=== PATIENT | female | born 1980 | race African-American/Black ===

== ENCOUNTER 2018-11-05 22:00 | Inpatient (IN) | payer MEDICAID ==
[~2018-11-05] VITALS: Ht 172.7 cm; Wt 84.0 kg
[~2018-11-05 22:00] MED LIST: CARBOPROST 250 MCG INJ ONE; PRENAT PO
[2018-11-05 23:36] VITALS: BMI 30.5
[2018-11-05] MEDS ORDERED: LACTATED RINGER'S 1,000 ML IV PRN (23:38)
[2018-11-06] VITALS (7 sets, daily range): BP systolic 101–123; BP diastolic 65–82; PULSE 76–104; RESP 13–19; Ht 172.7 cm; Wt 84.0 kg
[2018-11-06] MEDS ORDERED: MINERAL OIL LIGHT 10 ML VIAL TOP PRN
[2018-11-06] MEDS ORDERED: OXYTOCIN 30 UNITS/LR 500 ML IV PRN
[2018-11-06] MEDS ORDERED: BUTORPHANOL 2 MG INJ IV PRN
[2018-11-06] MEDS ORDERED: METHYLERGONOVINE 0.2 MG INJ IM PRN
[2018-11-06] MEDS ORDERED: LIDOCAINE 1% (MPF) 30 ML INJ INJ PRN
[2018-11-06] MEDS ORDERED: CARBOPROST 250 MCG INJ IM PRN
[2018-11-06] MEDS: LACTATED RINGER'S 1,000 ML IV SCH ×4 (00:19→15:21)
[2018-11-06] MEDS ORDERED: OXYTOCIN 30 UNITS/LR 500 ML IV SCH ×3 (01:00)
--- NOTE | 2018-11-06 11:36 | PREAC ---
Date/Time of Note Date/Time of Note DATE: 11/06/18 TIME: 11:35 Anesthesia Eval and Record Evaluation Time Pre-Procedure Interview DATE: 11/06/18 TIME: 11:35 Age 38 Sex female NPO: 2 hrs Preoperative diagnosis labor pain Planned procedure epidural Past Medical History Past Medical History: None Surgery & Anesthesia Issues No known issue Meds Anticoagulation: No Beta Ramya within 24 hr: No Reason Beta Ramya not given: Pt. not on B-Ramya Reported Medications Multivit/Min/Fol Ac/Iron/Pren* ( S*) 1 Tab Tab, 1 TAB PO DAILY, TAB 02/18/16 Current Medications Lactated Ringer's 1,000 ml @ 125 mls/hr Q8H IV Last administered on 11/06/18at 07:24; Admin Dose 125 MLS/HR; Start 11/05/18 at 23:38 Butorphanol Tartrate (Stadol) 2 mg Q2H PRN IV .PAIN SCALE 6-10; Start 11/06/18 at 00:00 Lidocaine (Xylocaine 1% (Mpf)) 30 ml ONCE PRN INJ .EPISIOTOMY; Start 11/06/18 at 00:00 Oxytocin/Lactated Ringer's 500 ml @ 500 mls/hr ONCE POST IV ; Start 11/06/18 at 00:00 Oxytocin/Lactated Ringer's 500 ml @ 125 mls/hr POST IV ; Start 11/06/18 at 00:00 Lactated Ringer's 1,000 ml @ 2,000 mls/hr Q30M PRN IV .ANESTHESIA; Start 11/05/18 at 23:38 Oxytocin/Lactated Ringer's 500 ml @ 0 mls/hr ONCE PRN IV .VAGINAL BLEEDING; Sta rt 11/06/18 at 00:00 Methylergonovine Maleate (Methergine) 0.2 mg ONCE PRN IM .VAGINAL BLEEDING; Sta rt 11/06/18 at 00:00 Carboprost Tromethamine (Hemabate) 250 mcg ONCE PRN IM .VAGINAL BLEEDING; Start 11/06/18 at 00:00 Misoprostol (Cytotec) 1,000 mcg ONCE PRN WI .VAGINAL BLEEDING; Start 11/06/18 at 00:00 Mineral Oil (Muri-Lube) 20 ml ONCE PRN TOP FOR DELIVERY; Start 11/06/18 at 00:00; Stop 11/07/18 at 00:00 Oxytocin/Lactated Ringer's 500 ml @ 0 mls/hr FOR INDUCTION IV Last administered on 11/06/18at 01:36; Admin Dose 1 MLS/HR; Start 11/06/18 at 01:00 Meds reviewed: Yes Allergies Coded Allergies: No Known Allergy (Unverified , 11/05/18) Allergies Reviewed: Yes Labs/Studies Labs Reviewed: Reviewed by anesthesiologist Result Diagram: 11/05/18 2315 Laboratory Tests 11/05/18 23:15 Blood Bank Test 11/05/18 23:15 Antibody Screen NEGATIVE Blood Type B POSITIVE Rh Immune Globulin Candidate NO test: N/A Pre-procedure Exam Last vitals Vital Signs Date Temp Pulse Resp B/P (MAP) Pulse Ox O2 O2 Flow FiO2 Time Delivery Rate 11/06/18 99.0 76 17 123/82 Room Air 01:42 (96) Airway: Adequate mouth opening, Adequate thyromental dist Mallampati: Mallampati IV Teeth: Normal Lung: Normal Heart: Normal ASA Physical Status ASA physical status: 2 Emergency: None Pre-operative Attestations Prior to commencing anesthesia and surgery, the patient was re-evaluated, there was verification of: *The patient's identity *The results of appropriate recent lab work and preoperative vital signs *The above evaluation not changing prior to induction *Anesthetic plan, risk benefits, alternative and complications discussed with patient/family; questions answered; patient/family understands, accepts and wishes to proceed. MARYELLEN FROST DO November 06, 2018 11:36
[2018-11-06] MEDS ORDERED: FENTAnyl 2MCG/ML-ROPIV 0.2% 100 ML ONE (11:48)
[2018-11-06] MEDS ORDERED: FENTAnyl 50 MCG/ML VIAL ONE (11:48)
[2018-11-06] MEDS: MISOPROSTOL 200 MCG TAB PR PRN ×2 (13:03→13:43)
[2018-11-06] MEDS ORDERED: ONDANSETRON 4 MG INJ IV STA (14:09)
[2018-11-06] MEDS ORDERED: ONDANSETRON 4 MG INJ ONE (14:12)
[2018-11-06] MEDS ORDERED: FAMOTIDINE 20 MG INJ IV ONE (14:30)
[2018-11-06] MEDS ORDERED: METOCLOPRAMIDE 10 MG INJ ONE (14:51)
[2018-11-06] MEDS ORDERED: FENTAnyl 50 MCG/ML VIAL IV ONE (15:00)
[2018-11-06] MEDS ORDERED: METOCLOPRAMIDE 10 MG INJ IV ONE (15:00)
[2018-11-06] MEDS ORDERED: LIDOCAINE 1% (MDV) 20 ML INJ ONE (15:38)
[2018-11-06] MEDS ORDERED: SUCCINYLCHOLINE CHLORIDE 100 MG/5 ML SYG IV ONE (15:38)
[2018-11-06] MEDS ORDERED: ROCURONIUM 50 MG INJ ONE (15:38)
[2018-11-06] MEDS ORDERED: ETOMIDATE 20 MG INJ ONE (15:38)
[2018-11-06] MEDS ORDERED: MIDAZOLAM 1 MG/ML 2 ML INJ ONE ×2 (15:38)
[2018-11-06] MEDS ORDERED: PHENYLephrine (100 MCG/ML) 10ML SYG ONE (16:25)
[2018-11-06] MEDS ORDERED: CA CHLORIDE 10% 10 ML SYRINGE ONE (16:26)
[2018-11-06] MEDS ORDERED: THROMBIN 5000 UNIT VIAL ONE (17:18)
[2018-11-06] MEDS ORDERED: DEXAMETHASONE 4 MG/ML 1 ML INJ ONE (17:20)
[2018-11-06] MEDS ORDERED: HYDROmorphONE 2 MG/ML SYG ONE (17:39)
[2018-11-06] MEDS ORDERED: ROPIVACAINE 0.5 % 30 ML VIAL ONE (17:44)
[2018-11-06] MEDS ORDERED: SUGAMMADEX SODIUM 200 MG/2 ML VIAL IV ONE (18:10)
--- NOTE | 2018-11-06 18:45 | PAC ---
Date/Time of Note Date/Time of Note DATE: 11/06/18 TIME: 18:43 Post-Anesthesia Notes Post-Anesthesia Note Last documented vital signs Vital Signs Date Temp Pulse Resp B/P (MAP) Pulse Ox O2 O2 Flow FiO2 Time Delivery Rate 11/06/18 98.2 103 19 113/62 98 Room Air 11/06/18 Activity: WNL Respiratory function: WNL Cardiovascular function: WNL Mental status: Baseline Pain reasonably controlled: Yes Hydration appropriate: Yes Nausea/Vomiting absent: Yes MARYELLEN FROST DO November 06, 2018 18:45
--- NOTE | 2018-11-06 18:47 | PREAC ---
Date/Time of Note Date/Time of Note DATE: 11/06/18 TIME: 18:46 Anesthesia Eval and Record Evaluation Time Pre-Procedure Interview DATE: 11/06/18 TIME: 18:46 Age 38 Sex female NPO: 8 hrs Preoperative diagnosis emergency hysterectomy for bleeding Planned procedure emergency hysterectomy for bleeding Past Medical History Past Medical History: None Surgery & Anesthesia Issues No known issue Meds Anticoagulation: No Beta Ramya within 24 hr: No Reason Beta Ramya not given: Pt. not on B-Ramya Reported Medications Multivit/Min/Fol Ac/Iron/Pren* ( S*) 1 Tab Tab, 1 TAB PO DAILY, TAB 02/18/16 Current Medications Lactated Ringer's 1,000 ml @ 125 mls/hr Q8H IV Last administered on 11/06/18at 15:21; Admin Dose 125 MLS/HR; Start 11/05/18 at 23:38 Butorphanol Tartrate (Stadol) 2 mg Q2H PRN IV .PAIN SCALE 6-10; Start 11/06/18 at 00:00 Lidocaine (Xylocaine 1% (Mpf)) 30 ml ONCE PRN INJ .EPISIOTOMY; Start 11/06/18 at 00:00 Oxytocin/Lactated Ringer's 500 ml @ 500 mls/hr ONCE POST IV Last administered on 11/06/18at 14:37; Admin Dose 500 MLS/HR; Start 11/06/18 at 00:00 Oxytocin/Lactated Ringer's 500 ml @ 125 mls/hr POST IV Last administered on 11/06/18at 15:04; Admin Dose 125 MLS/HR; Start 11/06/18 at 00:00 Lactated Ringer's 1,000 ml @ 2,000 mls/hr Q30M PRN IV .ANESTHESIA; Start 11/05/18 at 23:38 Oxytocin/Lactated Ringer's 500 ml @ 0 mls/hr ONCE PRN IV .VAGINAL BLEEDING; Start 11/06/18 at 00:00 Methylergonovine Maleate (Methergine) 0.2 mg ONCE PRN IM .VAGINAL BLEEDING; Start 11/06/18 at 00:00 Carboprost Tromethamine (Hemabate) 250 mcg ONCE PRN IM .VAGINAL BLEEDING Last administered on 11/06/18at 13:39; Admin Dose 250 MCG; Start 11/06/18 at 00:00 Misoprostol (Cytotec) 1,000 mcg ONCE PRN SC .VAGINAL BLEEDING Last administered on 11/06/18at 13:43; Admin Dose 400 MCG; Start 11/06/18 at 00:00 Mineral Oil (Muri-Lube) 20 ml ONCE PRN TOP FOR DELIVERY; Start 11/06/18 at 00:00; Stop 11/07/18 at 00:00 Oxytocin/Lactated Ringer's 500 ml @ 0 mls/hr FOR INDUCTION IV Last administered on 11/06/18at 01:36; Admin Dose 1 MLS/HR; Start 11/06/18 at 01:00 Meds reviewed: Yes Allergies Coded Allergies: No Known Allergy (Unverified , 11/05/18) Allergies Reviewed: Yes Labs/Studies Labs Reviewed: Reviewed by anesthesiologist Result Diagram: 11/06/18 1725 11/06/18 1725 Laboratory Tests 11/06/18 17:25 Blood Bank Test 11/05/18 23:15 Antibody Screen NEGATIVE Blood Product Summary Counts Blood Type B POSITIVE Crossmatch Red Blood Cells Rh Immune Globulin Candidate NO test: N/A Pre-procedure Exam Last vitals Vital Signs Date Temp Pulse Resp B/P (MAP) Pulse Ox O2 O2 Flow FiO2 Time Delivery Rate 11/06/18 99.0 76 17 123/82 Room Air 01:42 (96) Airway: Adequate mouth opening, Adequate thyromental dist Mallampati: Mallampati IV Teeth: Normal Lung: Normal Heart: Normal ASA Physical Status ASA physical status: 2 Emergency: E Pre-operative Attestations Prior to commencing anesthesia and surgery, the patient was re-evaluated, there was verification of: *The patient's identity *The results of appropriate recent lab work and preoperative vital signs *The above evaluation not changing prior to induction *Anesthetic plan, risk benefits, alternative and complications discussed with patient/family; questions answered; patient/family understands, accepts and wishes to proceed. MARYELLEN FROST DO November 06, 2018 18:47
[2018-11-06] MEDS ORDERED: MEPERIDINE 25 MG INJ IV PRN (19:00)
[2018-11-06] MEDS ORDERED: METOCLOPRAMIDE 10 MG INJ IV PRN (19:00)
[2018-11-06] MEDS ORDERED: ONDANSETRON 4 MG INJ IV PRN (19:00)
[2018-11-06] MEDS ORDERED: HYDROmorphONE 1 MG/5 ML IV SYRINGE IV PRN ×3 (19:00)
[2018-11-06] MEDS ORDERED: HYDROCODONE/APAP (5/325) TAB PO PRN ×2 (21:00)
--- NOTE | 2018-11-06 21:00 | HP ---
Date/Time of Note Date/Time of Note DATE: 11/06/18 TIME: 20:56 OB - History Hx of Present Free Text/Dictation Late entry note. Patient seen at 7 AM on 11/06/2018 38 years old with single intrauterine at 39 weeks and 2 days admitted for induction of labor for abdominal circumference more than 90% per perinatologist (Dr. Conklin) 's recommendation. She states good movement. She denies nausea, vomiting, shortness of breath, chest pain, headache, visual changes, vaginal bleeding or LOF. Chief Complaint: Admission for induction of labor Estimated Due Date: November 10, 2018 : 5 Para: 4 Spontaneous : 0 Therapeutic : 0 Care: Good Care (In [place]) Ultrasounds: Normal mid trimester US Obstetrical Complications: None Medical Complications: None Past Family/Social History * Past Medical, Surgical, Family and Obstetric Histories reviewed from chart. Blood Type: B+ Rubella: immune RPR/VDRL: Negative GBS Status: Negative HBsAG: Negative OB Admission Exam Vital Signs Vital Signs Vital Signs Date Temp Pulse Resp B/P (MAP) Pulse Ox O2 O2 Flow FiO2 Time Delivery Rate 11/06/18 98.2 100 19 117/65 100 Room Air 18:56 (82) Physical Exam HEENT: WNL Heart: Rhythm Normal Lungs: Clear Abdomen: WNL Extremities: Normal Reflexes: Normal Cervical Dilatation: other (2.5 cm) Effacement: 50% Station: -2 Membranes: Intact Heart Rate: 140's Accelerations: Accelerations Present Decelerations: No Decelerations Varibility: Moderate Contractions on Admission: < 5 Minutes Apart Intensity: Mild Last 72 hours Lab Results CBC & BMP 11/05/18 23:15 OB Assessment/Plan Other plan: 38 years old with single intrauterine at 39 weeks and 2 days in early labor. -FHR: No sign of metabolic acidosis- Category I -Continuous EFM, toco -CBC, blood type and screen -Analgesia options with R/B/A discussed in detail with patient -Epidural per patient request -Please see the orders -B+/Rubella: Immune -GBS: Negative Admission, procedures, expectations, risks and possible complications have been discussed in detail with the patient. Risk of vaginal delivery including but not limited to bleeding, infection, cervical laceration, placental retention, injury to fetus, blood transfusion, blood transfusion related infection, risk of anesthesia, adhesion, cervical laceration, episiotomy/laceration, removal of uterus for severe bleeding, possible delivery with risk of bleeding, infection, injury to other organs (bowel, bladder, ureter, vessels, nerves), injury to fetus, blood transfusion, blood transfusion related infection, risk of anesthesia, scar and hernia formation, needs for future , removal of uterus or any other indicated surgery discussed with the patient. She expressed understanding and repeats the risks. All of her questions were answered. She signed the informed consent. PHYSICIAN'S VERIFICATION OF INFORMED CONSENT The patient and her aunt counseled regarding the procedure, its indications, risks, potential complications and alternatives and any questions were answered. Consent was obtained. PLANNED PROCEDURE/TREATMENT: Vaginal delivery, episiotomy, repair of laceration possible delivery PHYSICIAN'S VERIFICATION OF INFORMED CONSENT FOR BLOOD TRANSFUSION: There is a reasonable possibility that blood transfusion will be necessary as a result of the patient's procedure. I have discussed the following with the patient/patient's legal district representative: An explanation of the benefits and risks of the transfusion of blood or blood products and the possible alternatives. All questions have been answered to the patient's satisfaction. INFORMED CONSENT:The patient has been informed of: The nature of the proposed care, treatment, services, medications, interventions or procedures. Potential benefits, risks or side effects, including potential problems related to recuperation. The likelihood of achieving care treatment and service goals. Reasonable alternatives to the proposed care, treatment and service. The relevant risks, benefits and side effects related to alternatives, including the possible results of not receiving care, treatment and services. When indicated, any limitations on the confidentiality of information learned from or about the patient. If appropriate, the risks, benefits and alternatives of the drugs to be used for sedation/analgesia including moderate sedation. If appropriate, patient has been provided information on the risks, benefits and alternatives to the transfusion of blood and/or blood products. If appropriate, patient has been provided information regarding the [employer] [place] Blood Act. ASHLEE JAIMES November 06, 2018 21:00
--- NOTE | 2018-11-06 21:17 | QN ---
Documentation Comment Late entry note. Patient seen at 11:15 this morning Patient seen and examined. She states good movement. She denies nausea, vomiting, shortness of breath, chest pain, headache, visual changes, vaginal bleeding or LOF. -FHR: No sign of metabolic acidosis- Category I -Continuous EFM, toco -She is currently on Pitocin (6 IU/min). She has contraction every 2-4 minutes -Analgesia options with R/B/A discussed in detail with patient. She is i nterested to receiving epidural. Anesthesia was called -SVE: /-2/cephalic/AROM performed/clear -Continue current management ASHLEE JAIMES November 06, 2018 21:17
[2018-11-07] VITALS (24 sets, daily range): BP systolic 108–159; BP diastolic 58–95; PULSE 64–101; RESP 11–21
[2018-11-07] MEDS ORDERED: morphine 2 MG INJ IV ONE (00:22)
[2018-11-07] MEDS: LACTATED RINGER'S 1,000 ML IV SCH ×2 (00:44→15:53)
[2018-11-07] MEDS ORDERED: HYDROmorphONE 0.2 MG/ML PCA IV SCH (01:30)
[2018-11-07] MEDS ORDERED: morphine 4 MG/ML VIAL IV PRN (01:30)
[2018-11-07] MEDS ORDERED: ONDANSETRON 4 MG INJ IV PRN (02:00)
[2018-11-07] MEDS ORDERED: NALOXONE (0.4 MG/ML) INJ IV PRN (02:00)
[2018-11-07] MEDS ORDERED: ACETAMINOPHEN 500 MG TAB PO PRN (02:00)
[2018-11-07] MEDS: HYDROmorphONE 0.2 MG/ML PCA IV SCH ×2 (02:59→13:06)
--- NOTE | 2018-11-07 04:19 | LDN ---
Date/Time of Note Date/Time of Note DATE: 11/07/18 TIME: 04:12 Delivery Summary Late entry note. Patient delivered at 12: 47 on 11/06/2018 38 years old with single intrauterine at 39 weeks and 2 days delivered a viable female over first-degree laceration. Nose and mouth suctioned. Rest of body delivered. Baby given to the nurse. Placenta delivered intact and spontaneously with three-vessel cord. Laceration repaired with 2-0 chromic. Patient tolerated procedure well. Time of delivery: 12:47 Weight 3680 g - 8 pound 2 ounces Height 19.5 inches 8 at 1 minutes and 9 at 5 minutes EBL 400 mL, Cytotec 400 mcg p.o. and 600 mcg per rectum given. Weeks of Gestation 39 weeks and 2 days Placenta Delivered: Spontaneously Meconium: none Episiotomy: No Estimated blood loss: 400 Sponge & Needle done & correct: Yes All needle counts correct: Yes Any foreign bodies felt in the: No Infant Delivery Information Sex Infant Sex: female Apgars 1 Minute: 8 5 Minute: 9 10 Minute: 10 Suctioning Nose & mouth suctioned at carroll: Yes Umbilical Cord Umbilical cord with: 3 Vessels Cord Blood was obtained: Yes Mother & Baby Disposition Disposition Mom transferred to: ICU Baby to NICU: No ASHLEE JAIMES November 07, 2018 04:19
--- NOTE | 2018-11-07 04:42 | QN ---
Documentation Comment Late entry note. Patient seen on 11/06/2018 Patient's nurse called to evaluate patient due to heavy vaginal bleeding approximately 1 hour after vaginal delivery. Immediately vaginal exam done, there was heavy bleeding with clot passing. Patient already had Lowery catheter. Pitocin, Cytotec and Hemabate given. Second IV line taken. Charge nurse, (Ying), Debra Gonzalez, extra nurse came to the room. Examination of vagina with no evidence of vaginal bleeding or bleeding from first-degree repaired laceration. Cervix checked with ring forceps circumferentially. There was no cervical laceration or bleeding from cervix. As the patient continued to have heavy bleeding. Called Dr. Lyle (Dairy Processing Equipment Operator) and Dr. Resendiz (anesthesiologist), both came in the room immediately. Third IV line taken by anesthesiologist. Exploration of uterine cavity revealed no succenturiate placental lobe or any membrane. Then Backri balloon inserted and filled with 500 mL normal saline. Possible hysterectomy with risks, benefits as a lifesaving procedure discussed the in detail with patient and her aunt. Both expressed understanding. 1 unit of packed RBC started, 2nd units of packed RBC and fresh frozen plasma ordered. After close monitoring, due to significant vaginal bleeding with clot passing and failed medical treatment with using Backri balloon, again hysterectomy as a lifesaving procedure discussed with patient, she agreed with procedure. Patient transferred to the operating room. EBL: 3300 ml ASHLEE JAIMES November 07, 2018 04:42
--- NOTE | 2018-11-07 05:19 | OPPN ---
Date/Time of Note Date/Time of Note DATE: 11/07/18 TIME: 05:16 Operative Report Preoperative Diagnosis 38 years old -0-0-5 with severe hemorrhage unresponsive to medical treatment. Postoperative Diagnosis 38 years old -0-0-5 with severe hemorrhage unresponsive to medical treatment Operation/Procedure Performed 1. Partial hysterectomy 2. Bilateral salpingectomy Surgeon see signature line assistant distribution manager Dr Lyle Anesthesia: general Estimated blood loss: 200 - 250 ml's Transfusion Required none Specimen 1. Uterus 2. Right and left fallopian tubes Grafts/Implants none Complications none HADADIAN,SEDI November 07, 2018 05:19
--- NOTE | 2018-11-07 06:21 | CONS ---
Assessment/Plan Assessment/Plan Assessment/Plan (Daily) 38-year-old female who came in for induction of labor (39 weeks and 2 days), status post vaginal delivery complicated by significant hemorrhage and DIC, status post partial hysterectomy and bilateral salpingectomy PLAN -Continue ICU monitoring -Patient is status post multiple PRBCs, platelets, FFP/cryoprecipitate transfusions -Follow-up hemoglobin, platelet count and DIC panel (except hemoglobin, rest have been normalizing) -Dr. Snowden, pharmacy services director was consulted -No anticoagulation unless hematology approves Consultation Date/Type/Reason Admit Date/Time November 05, 2018 at 22:49 Date/Time of Note DATE: 11/07/18 TIME: 06:05 Hx of Present Illness Patient is a 38-year-old female who was initially admitted for induction of labor. She was 39 weeks and 2 days when she arrived. Patient has a vaginal delivery and about an hour after she had a significant vaginal bleeding. According to the ICU nurse, about 3.5 L of blood was lost. Patient received 5 units of PRBCs. Lab also shows a progressively worsening thrombocytopenia and also her fibrinogen has been trending down. She received FFP's/cryoprecipitate. Patient was initially seen last night. Her vitals have been stable and patient looks comfortable. Her PT/INR and fibrinogen has now normalized. Platelet counts is now WNL. Hemoglobin however just came back at 6, which is the lowest. Patient was admitted to ICU last night and has not had any vaginal bleeding. Past Medical History Medical History: no pertinent history Home Meds Reported Medications Multivit/Min/Fol Ac/Iron/Pren* ( S*) 1 Tab Tab, 1 TAB PO DAILY, TAB /08/03 Medications Current Medications Lactated Ringer's 1,000 ml @ 125 mls/hr Q8H IV Last administered on 11/07/18at 00:44; Admin Dose 125 MLS/HR; Start 11/05/18 at 23:38 Butorphanol Tartrate (Stadol) 2 mg Q2H PRN IV .PAIN SCALE 6-10; Start 11/06/18 at 00:00 Lidocaine (Xylocaine 1% (Mpf)) 30 ml ONCE PRN INJ .EPISIOTOMY; Start 11/06/18 at 00:00 Oxytocin/Lactated Ringer's 500 ml @ 500 mls/hr ONCE POST IV Last administered on 11/06/18 14:37; Admin Dose 500 MLS/HR; Start 11/06/18 at 00:00 Oxytocin/Lactated Ringer's 500 ml @ 125 mls/hr POST IV Last administered on 11/06/18at 15:04; Admin Dose 125 MLS/HR; Start 11/06/18 at 00:00 Lactated Ringer's 1,000 ml @ 2,000 mls/hr Q30M PRN IV .ANESTHESIA; Start 11/05/18 at 23:38 Oxytocin/Lactated Ringer's 500 ml @ 0 mls/hr ONCE PRN IV .VAGINAL BLEEDING; Start 11/06/18 at 00:00 Methylergonovine Maleate (Methergine) 0.2 mg ONCE PRN IM .VAGINAL BLEEDING; Start 11/06/18 at 00:00 Carboprost Tromethamine (Hemabate) 250 mcg ONCE PRN IM .VAGINAL BLEEDING Last administered on 11/06/18 13:39; Admin Dose 250 MCG; Start 11/06/18 at 00:00 Misoprostol (Cytotec) 1,000 mcg ONCE PRN NM .VAGINAL BLEEDING Last administered on 11/06/18 13:43; Admin Dose 400 MCG; Start 11/06/18 at 00:00 Oxytocin/Lactated Ringer's 500 ml @ 0 mls/hr FOR INDUCTION IV Last administered on 11/06/18at 01:36; Admin Dose 1 MLS/HR; Start 11/06/18 at 01:00 Acetaminophen/ Hydrocodone Bitart ([place] (5/325)) 1 tab Q4H PRN PO MODERATE PAIN LEVEL 4-6; Start 11/06/18 at 21:00 Acetaminophen/ Hydrocodone Bitart ([place] (5/325)) 2 tab Q4H PRN PO MODERATE PAIN LEVEL 4-6; Start 11/06/18 at 21:00 Morphine Sulfate (morphine) 3 mg Q4H PRN IV SEVERE PAIN LEVEL 7-10; Start 11/07/18 at 01:30 Naloxone HCl (Narcan) 0.2 mg PRN PRN IV RR < 8; Start 11/07/18 at 02:00 Hydromorphone HCl (Dilaudid FRAMING MECHANIC) Q4PCA IV Last administered on 11/07/18at 02:59; Admin Dose 6 MG; Start 11/07/18 at 02:00 Acetaminophen (Tylenol Tab) 500 mg Q4H PRN PO PAIN LEVEL 1-5; Start 11/07/18 at 02:00 Ondansetron HCl (Zofran Inj) 4 mg Q6H PRN IV NAUSEA AND/OR VOMITING; Start 11/07/18 at 02:00 Allergies: Coded Allergies: No Known Allergy (Unverified , 11/05/18) Past Surgical History Past Surgical Hx: other (Patient just had partial hysterectomy and bilateral salpingectomy) Family History Significant Family History: no pertinent family hx Social History Alcohol Use: none Smoking Status: Unknown if ever smoked Drug Use: none Exam/Review of Systems Exam Vitals Vital Signs Date Temp Pulse Resp B/P (MAP) Pulse Ox O2 O2 Flow FiO2 Time Delivery Rate 11/07/18 95 19 132/84 100 Room Air 05:00 (100) 11/07/18 98.6 04:00 Intake and Output 11/06/18 11/06/18 11/07/18 1515:00 23:00 07:00 IntakeIntake Total 2500 ml 3072.5 ml 1128.5 ml OutputOutput Total 800 ml 4220 ml 580 ml BalanceBalance 1700 ml -1147.5 ml 548.5 ml Constitutional: other (No acute distress. She looked comfortable) Results Result Diagram: 11/07/18 0500 11/07/18 0500 Results 24hrs Laboratory Tests Test 11/06/18 07:04 11/06/18 13:55 11/06/18 16:00 11/06/18 17:25 Lab Scanned REFERENCE LAB Report White Blood 17.5 #H 14.5 H 18.6 #H Count Red Blood Count 4.20 2.56 #L 2.96 L Hemoglobin 11.9 L 7.1 #L 8.6 #L Hematocrit 35.4 L 21.2 #L 25.3 L Mean Corpuscular 84.3 82.8 85.5 Volume Mean Corpuscular 28.3 L 27.7 L 29.1 Hemoglobin Mean Corpuscular 33.6 33.5 34.0 Hemoglobin Bridgette nt Red Cell 15.8 H 14.9 H 14.6 H Distribution Width Platelet Count 153 107 #L 85 #L Mean Platelet 10.5 H 10.8 H 10.2 Volume Immature 0.600 H 1.000 H 0.800 H Granulocytes % Neutrophils % 86.5 H 90.3 H Lymphocytes % 9.4 L 3.1 L Monocytes % 2.5 5.5 Eosinophils % 0.8 0.1 Basophils % 0.2 0.2 Nucleated Red 0.0 0.0 0.0 Blood Cells % Immature 0.100 H 0.150 H 0.150 H Granulocytes # Neutrophils # 15.1 H 16.8 H Lymphocytes # 1.7 0.6 L Monocytes # 0.4 1.0 H Eosinophils # 0.1 0.0 Basophils # 0.0 0.0 Nucleated Red 0.0 0.0 Blood Cells # Prothrombin Time 19.4 #H 19.6 H 18.9 H Prothrombin Time 1.5 1.5 1.5 Ratio INR 1.63 1.65 1.57 International Normalized Ratio Activated 56.8 H 45.3 H 35.2 H Partial Thrombop last Time Fibrinogen 60.0 L < 60.0 L 40.0 L Sodium Level 137 136 Potassium Level 4.3 4.1 Chloride Level 107 113 H Carbon Dioxide 23 21 Level Anion Gap 7 2 L Blood Urea 7 9 Nitrogen Creatinine 0.67 0.49 Est Glomerular > 60 > 60 Filtrat Rate mL/min Glucose Level 93 139 # Uric Acid 5.6 Calcium Level 9.4 8.5 Total Bilirubin 1.8 H 1.5 H Direct Bilirubin 0.00 0.00 Indirect 1.8 H 1.5 H Bilirubin Aspartate Amino 32 28 Transf (AST/SGOT ) Alanine < 6 L 23 Aminotransferase (ALT/SGPT) Alkaline 184 H 58 # Phosphatase Total Protein 6.8 3.5 #L Albumin 3.6 1.6 #L Globulin 3.20 1.90 Albumin/Globulin 1.12 0.84 Ratio Segmented 91 H Neutrophils % (Manual) Lymphocytes % 7 L (Manual) Monocytes % 2 (Manual) Lymphocytes 1.0 (Manual) Monocytes # 0.2 L (Manual) Giant Platelets 2 H Anisocytosis 2+ Microcytosis 2+ Test 11/06/18 23:31 11/07/18 02:00 11/07/18 05:00 11/07/18 05:24 White Blood 13.4 #H 10.9 H Count Red Blood Count 2.66 L 2.06 #L Hemoglobin 7.7 L 6.0 #*L Hematocrit 22.3 L 17.3 #L Mean Corpuscular 83.8 84.0 Volume Mean Corpuscular 28.9 L 29.1 Hemoglobin Mean Corpuscular 34.5 34.7 Hemoglobin Bridgette nt Red Cell 14.6 H 14.4 Distribution Width Platelet Count 128 #L 108 L Mean Platelet 10.5 H 10.6 H Volume Neutrophils % 92.1 H Lymphocytes % 4.3 L Monocytes % 3.1 Eosinophils % 0.0 Basophils % 0.1 Nucleated Red 0.0 0.0 Blood Cells % Neutrophils # 12.3 H Lymphocytes # 0.6 L Monocytes # 0.4 Eosinophils # 0.0 Basophils # 0.0 Nucleated Red 0.0 Blood Cells # Prothrombin Time 14.6 # 14.2 Prothrombin Time 1.1 1.1 Ratio INR 1.13 1.09 International Normalized Ratio Activated 27.5 28.3 Partial Thrombop last Time Fibrinogen 179.0 #L 250.0 # Sodium Level 136 137 Potassium Level 4.2 3.8 Chloride Level 110 109 Carbon Dioxide 24 27 Level Anion Gap 2 L 1 L Blood Urea 8 7 Nitrogen Creatinine 0.54 0.57 Est Glomerular > 60 > 60 Filtrat Rate mL/min Glucose Level 123 107 Calcium Level 8.2 L 8.1 L Total Bilirubin 1.0 0.9 Direct Bilirubin 0.00 0.00 Indirect 1.0 0.9 Bilirubin Aspartate Amino 32 30 Transf (AST/SGOT ) Alanine 28 27 Aminotransferase (ALT/SGPT) Alkaline 63 58 Phosphatase Total Protein 4.3 L 4.3 L Albumin 2.1 L 2.1 L Globulin 2.20 2.20 Albumin/Globulin 0.95 0.95 Ratio Urine Color YELLOW Urine Clarity CLEAR Urine pH 5.0 Urine Specific 1.011 [place] Urine Ketones NEGATIVE Urine Nitrite NEGATIVE Urine Bilirubin NEGATIVE Urine NEGATIVE Urobilinogen Urine Leukocyte NEGATIVE Esterase Urine Hemoglobin NEGATIVE Urine Glucose NEGATIVE Urine Total NEGATIVE Protein Immature 0.400 Granulocytes % Immature 0.040 H Granulocytes # Thrombin Time 17.0 Lab Scanned BLOOD TRANSFUSI Report ON Medications Medication Current Medications Lactated Ringer's 1,000 ml @ 125 mls/hr Q8H IV Last administered on 11/07/18at 00:44; Admin Dose 125 MLS/HR; Start 11/05/18 at 23:38 Butorphanol Tartrate (Stadol) 2 mg Q2H PRN IV .PAIN SCALE 6-10; Start 11/06/18 at 00:00 Lidocaine (Xylocaine 1% (Mpf)) 30 ml ONCE PRN INJ .EPISIOTOMY; Start 11/06/18 at 00:00 Oxytocin/Lactated Ringer's 500 ml @ 500 mls/hr ONCE POST IV Last administered on 11/06/18at 14:37; Admin Dose 500 MLS/HR; Start 11/06/18 at 00:00 Oxytocin/Lactated Ringer's 500 ml @ 125 mls/hr POST IV Last administered on 11/06/18at 15:04; Admin Dose 125 MLS/HR; Start 11/06/18 at 00:00 Lactated Ringer's 1,000 ml @ 2,000 mls/hr Q30M PRN IV .ANESTHESIA; Start 11/05/18 at 23:38 Oxytocin/Lactated Ringer's 500 ml @ 0 mls/hr ONCE PRN IV .VAGINAL BLEEDING; Start 11/06/18 at 00:00 Methylergonovine Maleate (Methergine) 0.2 mg ONCE PRN IM .VAGINAL BLEEDING; Start 11/06/18 at 00:00 Carboprost Tromethamine (Hemabate) 250 mcg ONCE PRN IM .VAGINAL BLEEDING Last administered on 11/06/18at 13:39; Admin Dose 250 MCG; Start 11/06/18 at 00:00 Misoprostol (Cytotec) 1,000 mcg ONCE PRN NM .VAGINAL BLEEDING Last administered on 11/06/18at 13:43; Admin Dose 400 MCG; Start 11/06/18 at 00:00 Oxytocin/Lactated Ringer's 500 ml @ 0 mls/hr FOR INDUCTION IV Last administered on 11/06/18at 01:36; Admin Dose 1 MLS/HR; Start 11/06/18 at 01:00 Acetaminophen/ Hydrocodone Bitart ([place] (5/325)) 1 tab Q4H PRN PO MODERATE PAIN LEVEL 4-6; Start 11/06/18 at 21:00 Acetaminophen/ Hydrocodone Bitart ([place] (5/325)) 2 tab Q4H PRN PO MODERATE PAIN LEVEL 4-6; Start 11/06/18 at 21:00 Morphine Sulfate (morphine) 3 mg Q4H PRN IV SEVERE PAIN LEVEL 7-10; Start 11/07/18 at 01:30 Naloxone HCl (Narcan) 0.2 mg PRN PRN IV RR < 8; Start 11/07/18 at 02:00 Hydromorphone HCl (Dilaudid FRAMING MECHANIC) Q4PCA IV Last administered on 11/07/18at 02:59; Admin Dose 6 MG; Start 11/07/18 at 02:00 Acetaminophen (Tylenol Tab) 500 mg Q4H PRN PO PAIN LEVEL 1-5; Start 11/07/18 at 02:00 Ondansetron HCl (Zofran Inj) 4 mg Q6H PRN IV NAUSEA AND/OR VOMITING; Start 11/07/18 at 02:00 REBECA NUÑEZ MD November 07, 2018 06:20
--- NOTE | 2018-11-07 08:51 | CONS ---
Assessment/Plan Assessment/Plan Assessment/Plan (Daily) 38 yo woman who is now s/p hysterectomy. The coagulation parameters have improved and are in a good range. The Hgb was down to 6.0 this morning and two units of RBC are ordered and already started. There has been no further bleeding over the night per the nurse. I would continue to monitor closely but she is not likely to need more blood products now that the active bleeding has stopped. The patient feels alright and her main concern is about when she can see her baby. Note that her [id number] translated for us. Consultation Date/Type/Reason Admit Date/Time November 05, 2018 at 22:49 Date of Consultation: November 07, 2018 Type of Consult Hematology Reason for Consultation coagulopathy Requesting Provider: ASHLEE JAIMES Date/Time of Note DATE: 11/07/18 TIME: 08:43 Hx of Present Illness 38 yo who delivered her fifth baby but then had severe persistent vaginal bleeding. Hysterectomy was done yesterday afternoon but she had a coagulopathy. RBC, FFP, cryoprecipitate and platelets have been transfused. She is now in the ICU but is stable. Last night I spoke with Dr. Jaimes about her. Today she c/o mild dizziness but is alert and appears comfortable. RBC transfusion is presently infusing. Constitutional: other Past Medical History Medical History: no pertinent history Home Meds Reported Medications Multivit/Min/Fol Ac/Iron/Pren* ( S*) 1 Tab Tab, 1 TAB PO DAILY, TAB /08/03 Medications Current Medications Lactated Ringer's 1,000 ml @ 125 mls/hr Q8H IV Last administered on 11/07/18at 00:44; Admin Dose 125 MLS/HR; Start 11/05/18 at 23:38 Butorphanol Tartrate (Stadol) 2 mg Q2H PRN IV .PAIN SCALE 6-10; Start 11/06/18 at 00:00 Lidocaine (Xylocaine 1% (Mpf)) 30 ml ONCE PRN INJ .EPISIOTOMY; Start 11/06/18 at 00:00 Oxytocin/Lactated Ringer's 500 ml @ 500 mls/hr ONCE POST IV Last administered on 11/06/18at 14:37; Admin Dose 500 MLS/HR; Start 11/06/18 at 00:00 Oxytocin/Lactated Ringer's 500 ml @ 125 mls/hr POST IV Last administered on 11/06/18at 15:04; Admin Dose 125 MLS/HR; Start 11/06/18 at 00:00 Lactated Ringer's 1,000 ml @ 2,000 mls/hr Q30M PRN IV .ANESTHESIA; Start 11/05/18 at 23:38 Oxytocin/Lactated Ringer's 500 ml @ 0 mls/hr ONCE PRN IV .VAGINAL BLEEDING; Start 11/06/18 at 00:00 Methylergonovine Maleate (Methergine) 0.2 mg ONCE PRN IM .VAGINAL BLEEDING; Start 11/06/18 at 00:00 Carboprost Tromethamine (Hemabate) 250 mcg ONCE PRN IM .VAGINAL BLEEDING Last administered on 11/06/18at 13:39; Admin Dose 250 MCG; Start 11/06/18 at 00:00 Misoprostol (Cytotec) 1,000 mcg ONCE PRN SC .VAGINAL BLEEDING Last administered on 11/06/18at 13:43; Admin Dose 400 MCG; Start 11/06/18 at 00:00 Oxytocin/Lactated Ringer's 500 ml @ 0 mls/hr FOR INDUCTION IV Last administered on 11/06/18at 01:36; Admin Dose 1 MLS/HR; Start 11/06/18 at 01:00 Acetaminophen/ Hydrocodone Bitart ([place] (5/325)) 1 tab Q4H PRN PO MODERATE PAIN LEVEL 4-6; Start 11/06/18 at 21:00 Acetaminophen/ Hydrocodone Bitart ([place] (5/325)) 2 tab Q4H PRN PO MODERATE PAIN LEVEL 4-6; Start 11/06/18 at 21:00 Morphine Sulfate (morphine) 3 mg Q4H PRN IV SEVERE PAIN LEVEL 7-10; Start 11/07/18 at 01:30 Naloxone HCl (Narcan) 0.2 mg PRN PRN IV RR < 8; Start 11/07/18 at 02:00 Hydromorphone HCl (Dilaudid WATCH INSPECTOR) Q4PCA IV Last administered on 11/07/18at 02:59; Admin Dose 6 MG; Start 11/07/18 at 02:00 Acetaminophen (Tylenol Tab) 500 mg Q4H PRN PO PAIN LEVEL 1-5; Start 11/07/18 at 02:00 Ondansetron HCl (Zofran Inj) 4 mg Q6H PRN IV NAUSEA AND/OR VOMITING; Start 11/07/18 at 02:00 Allergies: Coded Allergies: No Known Allergy (Unverified , 11/05/18) Past Surgical History Past Surgical Hx: other (Patient just had partial hysterectomy and bilateral salpingectomy) Social History Alcohol Use: none Smoking Status: Unknown if ever smoked Drug Use: none Exam/Review of Systems Exam Vitals Vital Signs Date Temp Pulse Resp B/P (MAP) Pulse Ox O2 O2 Flow FiO2 Time Delivery Rate 11/07/18 74 17 131/76 100 Room Air 07:00 (94) 11/07/18 98.6 04:00 Intake and Output 11/06/18 11/06/18 11/07/18 1515:00 23:00 07:00 IntakeIntake Total 2500 ml 3072.5 ml 1378.5 ml OutputOutput Total 800 ml 4220 ml 790 ml BalanceBalance 1700 ml -1147.5 ml 588.5 ml Constitutional: alert Head: normocephalic Eyes: other (pallor) ENMT: nl lips & teeth Neck: supple Respiratory: clear to auscultation Cardiovascular: regular rate and rhythm Gastrointestinal: soft, non-tender Extremities: normal pulses Neurological: nl mental status, nl speech Lymph: nl lymph nodes Results Result Diagram: 11/07/18 0500 11/07/18 0500 Results 24hrs Laboratory Tests Test 11/06/18 13:55 11/06/18 16:00 11/06/18 17:25 11/06/18 23:31 White Blood Count 17.5 #H 14.5 H 18.6 #H 13.4 #H Red Blood Count 4.20 2.56 #L 2.96 L 2.66 L Hemoglobin 11.9 L 7.1 #L 8.6 #L 7.7 L Hematocrit 35.4 L 21.2 #L 25.3 L 22.3 L Mean Corpuscular 84.3 82.8 85.5 83.8 Volume Mean Corpuscular 28.3 L 27.7 L 29.1 28.9 L Hemoglobin Mean Corpuscular 33.6 33.5 34.0 34.5 Hemoglobin Concen t Red Cell 15.8 H 14.9 H 14.6 H 14.6 H Distribution Width Platelet Count 153 107 #L 85 #L 128 #L Mean Platelet 10.5 H 10.8 H 10.2 10.5 H Volume Immature 0.600 H 1.000 H 0.800 H Granulocytes % Neutrophils % 86.5 H 90.3 H 92.1 H Lymphocytes % 9.4 L 3.1 L 4.3 L Monocytes % 2.5 5.5 3.1 Eosinophils % 0.8 0.1 0.0 Basophils % 0.2 0.2 0.1 Nucleated Red 0.0 0.0 0.0 0.0 Blood Cells % Immature 0.100 H 0.150 H 0.150 H Granulocytes # Neutrophils # 15.1 H 16.8 H 12.3 H Lymphocytes # 1.7 0.6 L 0.6 L Monocytes # 0.4 1.0 H 0.4 Eosinophils # 0.1 0.0 0.0 Basophils # 0.0 0.0 0.0 Nucleated Red 0.0 0.0 0.0 Blood Cells # Prothrombin Time 19.4 #H 19.6 H 18.9 H 14.6 # Prothrombin Time 1.5 1.5 1.5 1.1 Ratio INR International 1.63 1.65 1.57 1.13 Normalized Ratio Activated 56.8 H 45.3 H 35.2 H 27.5 Partial Thrombopl ast Time Fibrinogen 60.0 L < 60.0 L 40.0 L 179.0 #L Sodium Level 137 136 136 Potassium Level 4.3 4.1 4.2 Chloride Level 107 113 H 110 Carbon Dioxide 23 21 24 Level Anion Gap 7 2 L 2 L Blood Urea 7 9 8 Nitrogen Creatinine 0.67 0.49 0.54 Est Glomerular > 60 > 60 > 60 Filtrat Rate mL/min Glucose Level 93 139 # 123 Uric Acid 5.6 Calcium Level 9.4 8.5 8.2 L Total Bilirubin 1.8 H 1.5 H 1.0 Direct Bilirubin 0.00 0.00 0.00 Indirect 1.8 H 1.5 H 1.0 Bilirubin Aspartate Amino 32 28 32 Transf (AST/SGOT) Alanine < 6 L 23 28 Aminotransferase (ALT/SGPT) Alkaline 184 H 58 # 63 Phosphatase Total Protein 6.8 3.5 #L 4.3 L Albumin 3.6 1.6 #L 2.1 L Globulin 3.20 1.90 2.20 Albumin/Globulin 1.12 0.84 0.95 Ratio Segmented 91 H Neutrophils % (Manual) Lymphocytes % 7 L (Manual) Monocytes % 2 (Manual) Lymphocytes 1.0 (Manual) Monocytes # 0.2 L (Manual) Giant Platelets 2 H Anisocytosis 2+ Microcytosis 2+ Test 11/07/18 02:00 11/07/18 05:00 11/07/18 05:24 Urine Color YELLOW Urine Clarity CLEAR Urine pH 5.0 Urine Specific 1.011 [place] Urine Ketones NEGATIVE Urine Nitrite NEGATIVE Urine Bilirubin NEGATIVE Urine NEGATIVE Urobilinogen Urine Leukocyte NEGATIVE Esterase Urine Hemoglobin NEGATIVE Urine Glucose NEGATIVE Urine Total NEGATIVE Protein White Blood Count 10.9 H Red Blood Count 2.06 #L Hemoglobin 6.0 #*L Hematocrit 17.3 #L Mean Corpuscular 84.0 Volume Mean Corpuscular 29.1 Hemoglobin Mean Corpuscular 34.7 Hemoglobin Concen t Red Cell 14.4 Distribution Width Platelet Count 108 L Mean Platelet 10.6 H Volume Immature 0.400 Granulocytes % Neutrophils % Segmented 88 H Neutrophils % (Manual) Band Neutrophils 1 % (Manual) Lymphocytes % Lymphocytes % 10 L (Manual) Monocytes % Monocytes % 1 (Manual) Eosinophils % Basophils % Nucleated Red 0.0 Blood Cells % Immature 0.040 H Granulocytes # Neutrophils # Neutrophils # 9.6 H (Manual) Band Neutrophils 0.1 # Lymphocytes 1.0 (Manual) Lymphocytes # Monocytes # Monocytes # 0.1 L (Manual) Eosinophils # Basophils # Nucleated Red Blood Cells # Platelet Estimate DECREASED Giant Platelets 1 H Prothrombin Time 14.2 Prothrombin Time 1.1 Ratio INR International 1.09 Normalized Ratio Activated 28.3 Partial Thrombopl ast Time Thrombin Time 17.0 Fibrinogen 250.0 # Sodium Level 137 Potassium Level 3.8 Chloride Level 109 Carbon Dioxide 27 Level Anion Gap 1 L Blood Urea 7 Nitrogen Creatinine 0.57 Est Glomerular > 60 Filtrat Rate mL/min Glucose Level 107 Calcium Level 8.1 L Total Bilirubin 0.9 Direct Bilirubin 0.00 Indirect 0.9 Bilirubin Aspartate Amino 30 Transf (AST/SGOT) Alanine 27 Aminotransferase (ALT/SGPT) Alkaline 58 Phosphatase Total Protein 4.3 L Albumin 2.1 L Globulin 2.20 Albumin/Globulin 0.95 Ratio Lab Scanned BLOOD TRANSFUSIO Report N Medications Medication Current Medications Lactated Ringer's 1,000 ml @ 125 mls/hr Q8H IV Last administered on 11/07/18 00:44; Admin Dose 125 MLS/HR; Start 11/05/18 at 23:38 Butorphanol Tartrate (Stadol) 2 mg Q2H PRN IV .PAIN SCALE 6-10; Start 11/06/18 at 00:00 Lidocaine (Xylocaine 1% (Mpf)) 30 ml ONCE PRN INJ .EPISIOTOMY; Start 11/06/18 at 00:00 Oxytocin/Lactated Ringer's 500 ml @ 500 mls/hr ONCE POST IV Last administered on 11/06/18 14:37; Admin Dose 500 MLS/HR; Start 11/06/18 at 00:00 Oxytocin/Lactated Ringer's 500 ml @ 125 mls/hr POST IV Last admini stered on 11/06/18at 15:04; Admin Dose 125 MLS/HR; Start 11/06/18 at 00:00 Lactated Ringer's 1,000 ml @ 2,000 mls/hr Q30M PRN IV .ANESTHESIA; Start 11/05/18 at 23:38 Oxytocin/Lactated Ringer's 500 ml @ 0 mls/hr ONCE PRN IV .VAGINAL BLEEDING; Start 11/06/18 at 00:00 Methylergonovine Maleate (Methergine) 0.2 mg ONCE PRN IM .VAGINAL BLEEDING; Start 11/06/18 at 00:00 Carboprost Tromethamine (Hemabate) 250 mcg ONCE PRN IM .VAGINAL BLEEDING Last administered on 11/06/18 13:39; Admin Dose 250 MCG; Start 11/06/18 at 00:00 Misoprostol (Cytotec) 1,000 mcg ONCE PRN SC .VAGINAL BLEEDING Last administered on 11/06/18 13:43; Admin Dose 400 MCG; Start 11/06/18 at 00:00 Oxytocin/Lactated Ringer's 500 ml @ 0 mls/hr FOR INDUCTION IV Last administered on 11/06/18 01:36; Admin Dose 1 MLS/HR; Start 11/06/18 at 01:00 Acetaminophen/ Hydrocodone Bitart ([place] (5/325)) 1 tab Q4H PRN PO MODERATE PAIN LEVEL 4-6; Start 11/06/18 at 21:00 Acetaminophen/ Hydrocodone Bitart ([place] (5/325)) 2 tab Q4H PRN PO MODERATE PAIN LEVEL 4-6; Start 11/06/18 at 21:00 Morphine Sulfate (morphine) 3 mg Q4H PRN IV SEVERE PAIN LEVEL 7-10; Start 11/07/18 at 01:30 Naloxone HCl (Narcan) 0.2 mg PRN PRN IV RR < 8; Start 11/07/18 at 02:00 Hydromorphone HCl (Dilaudid WATCH INSPECTOR) Q4PCA IV Last administered on 11/07/18at 02:59; Admin Dose 6 MG; Start 11/07/18 at 02:00 Acetaminophen (Tylenol Tab) 500 mg Q4H PRN PO PAIN LEVEL 1-5; Start 11/07/18 at 02:00 Ondansetron HCl (Zofran Inj) 4 mg Q6H PRN IV NAUSEA AND/OR VOMITING; Start at 02:00 ROSY AVILEZ MD November 07, 2018 08:51
--- NOTE | 2018-11-07 09:14 | QN ---
Documentation Comment s/p followed with [facility] requiring hysterectomy as a life saving measure. Subjective: she has abdominal pain, wants to see baby Objective: Afebrile, VSS NAD A&O Abdomen: soft, appropriate tender Incision: covered no vaginal bleeding Extremity: 1+ edema bilaterally Assessment: * POD # 1. s/p followed with [facility] requiring hysterectomy as a life saving measure. * DIC, Resolved * Anemia: being transfused Plan: Close monitoring and support today I recommend Abx recheck labs later today RANDY RUVALCABA MD November 07, 2018 09:14
[2018-11-07] MEDS: PIPER-TAZO 3.375 GM IV (PMX) 100 ML IVPB SCH ×2 (13:30→20:44)
[2018-11-07] MEDS ORDERED: DIPHENHYDRAMINE 50 MG INJ IV PRN (16:00)
[2018-11-07] MEDS ORDERED: KETOROLAC 30 MG INJ IV PRN (16:30)
--- NOTE | 2018-11-07 19:45 | PN ---
Date/Time of Note Date/Time of Note DATE: 11/07/18 TIME: 19:42 Assessment/Plan VTE Prophylaxis Risk score (from Ns)>0 risk: 10 [place] [facility] [place] Pharmacological prophylaxis: NA/contraindicated Pharm contraindication: blood coag disorder Assessment/Plan Hospital Course 1. Acute blood loss anemia secondary to hemorrhage Patient status post vaginal delivery comp gated by significant hem orrhage, DIC, patient is status post partial hysterectomy and bilateral salpingectomy Patient is status post 7 units of packed red blood cells, FFP and cryoprecipitate Hematology consultation appreciated Patient is hemodynamically stable at this time Follow-up on OB recommendations Downgrade from ICU Prophylaxis: SCDs Result Diagram: 11/07/18 1449 11/07/18 0500 Results 24hrs Laboratory Tests Test 11/06/18 23:31 11/07/18 02:00 11/07/18 05:00 11/07/18 05:24 White Blood Count 13.4 #H 10.9 H Red Blood Count 2.66 L 2.06 #L Hemoglobin 7.7 L 6.0 #*L Hematocrit 22.3 L 17.3 #L Mean Corpuscular 83.8 84.0 Volume Mean Corpuscular 28.9 L 29.1 Hemoglobin Mean Corpuscular 34.5 34.7 Hemoglobin Concen t Red Cell 14.6 H 14.4 Distribution Width Platelet Count 128 #L 108 L Mean Platelet 10.5 H 10.6 H Volume Neutrophils % 92.1 H Lymphocytes % 4.3 L Monocytes % 3.1 Eosinophils % 0.0 Basophils % 0.1 Nucleated Red 0.0 0.0 Blood Cells % Neutrophils # 12.3 H Lymphocytes # 0.6 L Monocytes # 0.4 Eosinophils # 0.0 Basophils # 0.0 Nucleated Red 0.0 Blood Cells # Prothrombin Time 14.6 # 14.2 Prothrombin Time 1.1 1.1 Ratio INR International 1.13 1.09 Normalized Ratio Activated 27.5 28.3 Partial Thrombopl ast Time Fibrinogen 179.0 #L 250.0 # Sodium Level 136 137 Potassium Level 4.2 3.8 Chloride Level 110 109 Carbon Dioxide 24 27 Level Anion Gap 2 L 1 L Blood Urea 8 7 Nitrogen Creatinine 0.54 0.57 Est Glomerular > 60 > 60 Filtrat Rate mL/min Glucose Level 123 107 Calcium Level 8.2 L 8.1 L Total Bilirubin 1.0 0.9 Direct Bilirubin 0.00 0.00 Indirect 1.0 0.9 Bilirubin Aspartate Amino 32 30 Transf (AST/SGOT) Alanine 28 27 Aminotransferase (ALT/SGPT) Alkaline 63 58 Phosphatase Total Protein 4.3 L 4.3 L Albumin 2.1 L 2.1 L Globulin 2.20 2.20 Albumin/Globulin 0.95 0.95 Ratio Urine Color YELLOW Urine Clarity CLEAR Urine pH 5.0 Urine Specific 1.011 [place] Urine Ketones NEGATIVE Urine Nitrite NEGATIVE Urine Bilirubin NEGATIVE Urine NEGATIVE Urobilinogen Urine Leukocyte NEGATIVE Esterase Urine Hemoglobin NEGATIVE Urine Glucose NEGATIVE Urine Total NEGATIVE Protein Immature 0.400 Granulocytes % Segmented 88 H Neutrophils % (Manual) Band Neutrophils 1 % (Manual) Lymphocytes % 10 L (Manual) Monocytes % 1 (Manual) Immature 0.040 H Granulocytes # Neutrophils # 9.6 H (Manual) Band Neutrophils 0.1 # Lymphocytes 1.0 (Manual) Monocytes # 0.1 L (Manual) Platelet Estimate DECREASED Giant Platelets 1 H Thrombin Time 17.0 Lactate 739 H Dehydrogenase Lab Scanned BLOOD TRANSFUSIO Report N Test 11/07/18 14:49 White Blood Count 8.7 # Red Blood Count 2.80 #L Hemoglobin 8.0 #L Hematocrit 23.2 #L Mean Corpuscular 82.9 Volume Mean Corpuscular 28.6 L Hemoglobin Mean Corpuscular 34.5 Hemoglobin Concen t Red Cell 14.2 Distribution Width Platelet Count 83 #L Mean Platelet 11.0 H Volume Immature 0.600 H Granulocytes % Neutrophils % Segmented 83 H Neutrophils % (Manual) Lymphocytes % Lymphocytes % 11 L (Manual) Monocytes % Monocytes % 6 (Manual) Eosinophils % Basophils % Nucleated Red 0.0 Blood Cells % Immature 0.050 H Granulocytes # Neutrophils # Lymphocytes 0.9 (Manual) Lymphocytes # Monocytes # Monocytes # 0.5 (Manual) Eosinophils # Basophils # Nucleated Red Blood Cells # Platelet Estimate DECREASED Giant Platelets 1 H Polychromasia 1+ Anisocytosis 1+ Microcytosis 1+ Subjective 24 Hr Interval Summary Constitutional: no complaints Exam/Review of Systems Exam Vitals Vital Signs Date Temp Pulse Resp B/P (MAP) Pulse Ox O2 O2 Flow FiO2 Time Delivery Rate 11/07/18 92 14 136/83 100 Room Air 19:00 (100) 11/07/18 98.0 16:00 Intake and Output 11/06/18 11/06/18 11/07/18 1515:00 23:00 07:00 IntakeIntake Total 2500 ml 3072.5 ml 1378.5 ml OutputOutput Total 800 ml 4220 ml 790 ml BalanceBalance 1700 ml -1147.5 ml 588.5 ml Constitutional: alert, oriented Respiratory: clear to auscultation Cardiovascular: regular rate and rhythm Gastrointestinal: soft; No distended Musculoskeletal: nl extremities to inspection Results Results 24hrs Laboratory Tests Test 11/06/18 23:31 11/07/18 02:00 11/07/18 05:00 11/07/18 05:24 White Blood Count 13.4 #H 10.9 H Red Blood Count 2.66 L 2.06 #L Hemoglobin 7.7 L 6.0 #*L Hematocrit 22.3 L 17.3 #L Mean Corpuscular 83.8 84.0 Volume Mean Corpuscular 28.9 L 29.1 Hemoglobin Mean Corpuscular 34.5 34.7 Hemoglobin Concen t Red Cell 14.6 H 14.4 Distribution Width Platelet Count 128 #L 108 L Mean Platelet 10.5 H 10.6 H Volume Neutrophils % 92.1 H Lymphocytes % 4.3 L Monocytes % 3.1 Eosinophils % 0.0 Basophils % 0.1 Nucleated Red 0.0 0.0 Blood Cells % Neutrophils # 12.3 H Lymphocytes # 0.6 L Monocytes # 0.4 Eosinophils # 0.0 Basophils # 0.0 Nucleated Red 0.0 Blood Cells # Prothrombin Time 14.6 # 14.2 Prothrombin Time 1.1 1.1 Ratio INR International 1.13 1.09 Normalized Ratio Activated 27.5 28.3 Partial Thrombopl ast Time Fibrinogen 179.0 #L 250.0 # Sodium Level 136 137 Potassium Level 4.2 3.8 Chloride Level 110 109 Carbon Dioxide 24 27 Level Anion Gap 2 L 1 L Blood Urea 8 7 Nitrogen Creatinine 0.54 0.57 Est Glomerular > 60 > 60 Filtrat Rate mL/min Glucose Level 123 107 Calcium Level 8.2 L 8.1 L Total Bilirubin 1.0 0.9 Direct Bilirubin 0.00 0.00 Indirect 1.0 0.9 Bilirubin Aspartate Amino 32 30 Transf (AST/SGOT) Alanine 28 27 Aminotransferase (ALT/SGPT) Alkaline 63 58 Phosphatase Total Protein 4.3 L 4.3 L Albumin 2.1 L 2.1 L Globulin 2.20 2.20 Albumin/Globulin 0.95 0.95 Ratio Urine Color YELLOW Urine Clarity CLEAR Urine pH 5.0 Urine Specific 1.011 [place] Urine Ketones NEGATIVE Urine Nitrite NEGATIVE Urine Bilirubin NEGATIVE Urine NEGATIVE Urobilinogen Urine Leukocyte NEGATIVE Esterase Urine Hemoglobin NEGATIVE Urine Glucose NEGATIVE Urine Total NEGATIVE Protein Immature 0.400 Granulocytes % Segmented 88 H Neutrophils % (Manual) Band Neutrophils 1 % (Manual) Lymphocytes % 10 L (Manual) Monocytes % 1 (Manual) Immature 0.040 H Granulocytes # Neutrophils # 9.6 H (Manual) Band Neutrophils 0.1 # Lymphocytes 1.0 (Manual) Monocytes # 0.1 L (Manual) Platelet Estimate DECREASED Giant Platelets 1 H Thrombin Time 17.0 Lactate 739 H Dehydrogenase Lab Scanned BLOOD TRANSFUSIO Report N Test 11/07/18 14:49 White Blood Count 8.7 # Red Blood Count 2.80 #L Hemoglobin 8.0 #L Hematocrit 23.2 #L Mean Corpuscular 82.9 Volume Mean Corpuscular 28.6 L Hemoglobin Mean Corpuscular 34.5 Hemoglobin Concen t Red Cell 14.2 Distribution Width Platelet Count 83 #L Mean Platelet 11.0 H Volume Immature 0.600 H Granulocytes % Neutrophils % Segmented 83 H Neutrophils % (Manual) Lymphocytes % Lymphocytes % 11 L (Manual) Monocytes % Monocytes % 6 (Manual) Eosinophils % Basophils % Nucleated Red 0.0 Blood Cells % Immature 0.050 H Granulocytes # Neutrophils # Lymphocytes 0.9 (Manual) Lymphocytes # Monocytes # Monocytes # 0.5 (Manual) Eosinophils # Basophils # Nucleated Red Blood Cells # Platelet Estimate DECREASED Giant Platelets 1 H Polychromasia 1+ Anisocytosis 1+ Microcytosis 1+ Medications Medication Current Medications Lactated Ringer's 1,000 ml @ 125 mls/hr Q8H IV Last administered on 11/07/18at 15:53; Admin Dose 125 MLS/HR; Start 11/05/18 at 23:38 Butorphanol Tartrate (Stadol) 2 mg Q2H PRN IV .PAIN SCALE 6-10; Start 11/06/18 at 00:00 Lidocaine (Xylocaine 1% (Mpf)) 30 ml ONCE PRN INJ .EPISIOTOMY; Start 11/06/18 at 00:00 Oxytocin/Lactated Ringer's 500 ml @ 500 mls/hr ONCE POST IV Last administered on 11/06/18 14:37; Admin Dose 500 MLS/HR; Start 11/06/18 at 00:00 Oxytocin/Lactated Ringer's 500 ml @ 125 mls/hr POST IV Last administered on 11/06/18 15:04; Admin Dose 125 MLS/HR; Start 11/06/18 at 00:00 Lactated Ringer's 1,000 ml @ 2,000 mls/hr Q30M PRN IV .ANESTHESIA; Start 10/17 07/06 at 23:38 Oxytocin/Lactated Ringer's 500 ml @ 0 mls/hr ONCE PRN IV .VAGINAL BLEEDING; Start 11/06/18 at 00:00 Methylergonovine Maleate (Methergine) 0.2 mg ONCE PRN IM .VAGINAL BLEEDING; Start 11/06/18 at 00:00 Carboprost Tromethamine (Hemabate) 250 mcg ONCE PRN IM .VAGINAL BLEEDING Last administered on 11/06/18 13:39; Admin Dose 250 MCG; Start 11/06/18 at 00:00 Misoprostol (Cytotec) 1,000 mcg ONCE PRN DE .VAGINAL BLEEDING Last administered on 11/06/18 13:43; Admin Dose 400 MCG; Start 11/06/18 at 00:00 Oxytocin/Lactated Ringer's 500 ml @ 0 mls/hr FOR INDUCTION IV Last administered on 11/06/18 01:36; Admin Dose 1 MLS/HR; Start 11/06/18 at 01:00 Acetaminophen/ Hydrocodone Bitart ([place] (5/325)) 1 tab Q4H PRN PO MODERATE PAIN LEVEL 4-6; Start 11/06/18 at 21:00 Acetaminophen/ Hydrocodone Bitart ([place] (5/325)) 2 tab Q4H PRN PO MODERATE PAIN LEVEL 4-6; Start 11/06/18 at 21:00 Morphine Sulfate (morphine) 3 mg Q4H PRN IV SEVERE PAIN LEVEL 7-10; Start 11/07/18 at 01:30 Naloxone HCl (Narcan) 0.2 mg PRN PRN IV RR < 8; Start 11/07/18 at 02:00 Hydromorphone HCl (Dilaudid [employer] MANAGER) Q4PCA IV Last administered on 11/07/18 13:06; Admin Dose 6 MG; Start 11/07/18 at 02:00 Acetaminophen (Tylenol Tab) 500 mg Q4H PRN PO PAIN LEVEL 1-5; Start 11/07/18 at 02:00 Ondansetron HCl (Zofran Inj) 4 mg Q6H PRN IV NAUSEA AND/OR VOMITING; Start 11/07/18 at 02:00 Piperacillin Sod/ Tazobactam Sod 100 ml @ 25 mls/hr TID@02,10,18 IVPB Last administered on 11/07/18at 13:30; Admin Dose 25 MLS/HR; Start 11/07/18 at 10:00 Diphenhydramine HCl (Benadryl) 25 mg Q6H PRN IV ITCHING Last administered on 11/07/18at 15:53; Admin Dose 25 MG; Start 11/07/18 at 16:00 Ketorolac Tromethamine (Toradol) 30 mg Q6H PRN IV PAIN LEVEL 1-3 Last administered on 11/07/18at 17:18; Admin Dose 30 MG; Start 11/07/18 at 16:30; Stop 11/10/18 at 16:29 VLADIMIR LAWS November 07, 2018 19:45
[2018-11-08] MEDS ORDERED: LANOLIN HPA 1 PKT TOP PRN (01:00)
[2018-11-08] MEDS: HYDROCODONE/APAP (5/325) TAB PO SCH ×3 (01:17→17:00)
[2018-11-08] MEDS: CEFAZOLIN 2 GM/50 ML (PMX) 50 ML IVPB SCH ×3 (01:24→16:44)
[2018-11-08] MEDS: HYDROCODONE/APAP (5/325) TAB PO PRN ×3 (04:02→21:45)
[2018-11-08 04:40] VITALS: BP 149/86; PULSE 90; RESP 20
[2018-11-08] MEDS ORDERED: LACTATED RINGER'S 1,000 ML IV SCH ×2 (06:00→13:30)
[2018-11-08] MEDS: KETOROLAC 30 MG INJ IV PRN ×2 (06:40→22:41)
[2018-11-08 08:15] VITALS: BP 115/71; PULSE 93; RESP 20
--- NOTE | 2018-11-08 09:51 | PN ---
DATE: 11/08/2018 SUBJECTIVE: The patient is feeling better. She has been transferred back from the intensive care un it. She has not complained of abdominal pain. OBJECTIVE: GENERAL: The patient is a well-developed, well-nourished female who is in no acute distress. VITAL SIGNS: Temperature 99 orally, pulse 90 per minute and regular, respirations 20, blood pressure 149/86, pulse oximetry 100% on room air. SKIN: No ecchymosis, no petechiae or rashes. HEENT: Normocephalic. No evidence of trauma. Pupils equal, round, reactive to light and accommodat ion. Sclerae nonicteric. Oral mucosa is moist without lesions. The oral mucosa and conjunctivae ar e pale. NECK: Supple. No jugular venous distention or thyroid enlargement. CHEST: Clear to auscultation and percussion. No rhonchi, wheezes, rales or rubs. HEART: Regular sinus rhythm, no S3, S4 or murmurs. No rubs. ABDOMEN: Mildly distended and soft. There is a midline surgical scar with dressing in place. There is no bleeding noted. Bowel sounds are decreased. No rebound tenderness. EXTREMITIES: Good range of motion. No clubbing, no edema or cyanosis. No palpable cords or Homans sign. NEUROLOGIC: Normal. LABORATORY DATA: White blood count 8700 with absolute neutrophil count of 83%, hemoglobin 7.4, hemat ocrit 21.6, MCV 84.4, MCH 28.9, MCHC 34.3, and platelet count is 79,000. Sodium 139, potassium 3.6, BUN 7, creatinine 0.68. Protime 12.7 seconds, INR of 0.9, PTT 28.7 seconds. Fibrinogen is 326. ASSESSMENT: 1. DIC, resolved. 2. day 3. 3. Thrombocytopenia and anemia secondary to #1. PLAN: It is unclear at this time whether the patient's abnormalities are related to the DIC or to "w kennedy out." I do feel, however, it is likely that there was a DIC as a fibrinogen was lower than one w ould expect from washout alone. Review of yesterday's peripheral blood smear does not show any red blood cell fragmentation. Platele ts are decreased, but there are large platelet forms seen. I do feel that the patient's consumptive coagulopathy has resolved. There is no end organ damage and that the patient's liver functions and renal function remain normal. At this time, I do not feel the patient requires any further blood products. Dictated By: CHAITANYA PRESTON MD SR/NTS Conf#: [id number] DID#: [id number] CC: VLADIMIR LAWS MD; ASHLEE JAIMES MD;*EndCC*
[2018-11-08] MEDS ORDERED: DIPHTH/TET/ACEL PERTUSS (ADULT) 0.5 ML VIAL IM* ONE (11:00)
[2018-11-08 15:45] VITALS: BP 133/83; PULSE 83; RESP 18
--- NOTE | 2018-11-08 17:02 | PN ---
Date/Time of Note Date/Time of Note DATE: 11/08/18 TIME: 17:01 Assessment/Plan VTE Prophylaxis Risk score (from Ns)>0 risk: 2 SCD applied (from [facility]): Yes Pharmacological prophylaxis: NA/contraindicated Pharm contraindication: blood coag disorder Assessment/Plan Hospital Course 1. Acute blood loss anemia secondary to hemorrhage Patient status post vaginal delivery comp gated by significant hemo rrhage, DIC, patient is status post partial hysterectomy and bilateral salpingectomy Patient is status post 7 units of packed red blood cells, FFP and cryoprecipitate Hematology consultation appreciated Patient is hemodynamically stable at this time Follow-up on OB recommendations Downgraded from ICU Prophylaxis: SCDs Result Diagram: 11/08/18 0640 11/08/18 0640 Results 24hrs Laboratory Tests Test 11/08/18 06:40 11/08/18 06:40 White Blood Count 8.7 Red Blood Count 2.56 L Hemoglobin 7.4 L Hematocrit 21.6 L Mean Corpuscular Volume 84.4 Mean Corpuscular Hemoglobin 28.9 L Mean Corpuscular Hemoglobin Concent 34.3 Red Cell Distribution Width 14.6 H Platelet Count 79 L Mean Platelet Volume 11.2 H Immature Granulocytes % 0.500 H Neutrophils % 83.1 H Lymphocytes % 9.8 L Monocytes % 5.9 Eosinophils % 0.6 Basophils % 0.1 Nucleated Red Blood Cells % 0.0 Immature Granulocytes # 0.040 H Neutrophils # 7.3 Lymphocytes # 0.9 Monocytes # 0.5 Eosinophils # 0.1 Basophils # 0.0 Nucleated Red Blood Cells # 0.0 Prothrombin Time 12.7 Prothrombin Time Ratio 1.0 INR International Normalized Ratio 0.94 Activated Partial Thromboplast Time 28.7 Fibrinogen 326.0 # Sodium Level 139 Potassium Level 3.6 Chloride Level 108 Carbon Dioxide Level 29 Anion Gap 2 L Blood Urea Nitrogen 7 Creatinine 0.68 Est Glomerular Filtrat Rate mL/min > 60 Glucose Level 99 Calcium Level 8.3 L Phosphorus Level 3.8 Magnesium Level 1.5 L Lab Scanned Report BLOOD TRANSFUSION Subjective 24 Hr Interval Summary Constitutional: no complaints Exam/Review of Systems Exam Vitals Vital Signs Date Temp Pulse Resp B/P (MAP) Pulse Ox O2 O2 Flow FiO2 Time Delivery Rate 11/08/18 99.0 83 18 133/83 15:45 (100) 11/08/18 95 08:15 11/07/18 Room Air 22:45 Intake and Output 11/07/18 11/07/18 11/08/18 1515:00 23:00 07:00 IntakeIntake Total 413 ml 1066 ml 380 ml OutputOutput Total 750 ml 555 ml BalanceBalance -337 ml 511 ml 380 ml Constitutional: alert, oriented Respiratory: clear to auscultation Cardiovascular: regular rate and rhythm Gastrointestinal: soft; No distended Musculoskeletal: nl extremities to inspection Results Results 24hrs Laboratory Tests Test 11/08/18 06:40 11/08/18 06:40 White Blood Count 8.7 Red Blood Count 2.56 L Hemoglobin 7.4 L Hematocrit 21.6 L Mean Corpuscular Volume 84.4 Mean Corpuscular Hemoglobin 28.9 L Mean Corpuscular Hemoglobin Concent 34.3 Red Cell Distribution Width 14.6 H Platelet Count 79 L Mean Platelet Volume 11.2 H Immature Granulocytes % 0.500 H Neutrophils % 83.1 H Lymphocytes % 9.8 L Monocytes % 5.9 Eosinophils % 0.6 Basophils % 0.1 Nucleated Red Blood Cells % 0.0 Immature Granulocytes # 0.040 H Neutrophils # 7.3 Lymphocytes # 0.9 Monocytes # 0.5 Eosinophils # 0.1 Basophils # 0.0 Nucleated Red Blood Cells # 0.0 Prothrombin Time 12.7 Prothrombin Time Ratio 1.0 INR International Normalized Ratio 0.94 Activated Partial Thromboplast Time 28.7 Fibrinogen 326.0 # Sodium Level 139 Potassium Level 3.6 Chloride Level 108 Carbon Dioxide Level 29 Anion Gap 2 L Blood Urea Nitrogen 7 Creatinine 0.68 Est Glomerular Filtrat Rate mL/min > 60 Glucose Level 99 Calcium Level 8.3 L Phosphorus Level 3.8 Magnesium Level 1.5 L Lab Scanned Report BLOOD TRANSFUSION Medications Medication Current Medications Cefazolin Sodium/ Dextrose 50 ml @ 100 mls/hr Q8H IVPB Last administered on 11/08/18at 16:44; Admin Dose 100 MLS/HR; Start 11/08/18 at 01:00; Stop 11/08/18 at 17:29 Simethicone (Mylicon) 160 mg Q8H PRN PO .GAS Last administered on 11/08/18at 15:37; Admin Dose 160 MG; Start 11/08/18 at 01:00 Lanolin (Lanolin Hpa) 1 applic BEDSIDE MEDICATION PRN TOP .NIPPLES; Start 11/08/18 at 01:00 Diphtheria/ Tetanus/Acell Pertussis (Adacel) 0.5 ml ONCE ONCE IM* ; Start 11/10/18 at 09:00; Stop 11/10/18 at 09:01 Measles/Mumps/ Rubella Vaccine Live (Mmr Ii Vaccine) 0.5 ml ONCE ONCE SC* ; Start 11/10/18 at 09:00; Stop 11/10/18 at 09:01 Acetaminophen/ Hydrocodone Bitart ([place] (5/325)) 1 tab Q4H PRN PO PAIN LEVEL 7-10 Last administered on 11/08/18at 15:38; Admin Dose 1 TAB; Start 11/08/18 at 04:00 Acetaminophen/ Hydrocodone Bitart ([place] (5/325)) 1 tab Q8H PO Last administered on 11/08/18at 09:57; Admin Dose 1 TAB; Start 11/08/18 at 01:00 Ketorolac Tromethamine (Toradol) 30 mg Q6H PRN IV PAIN LEVEL 4-7 Last administered on 11/08/18at 06:40; Admin Dose 30 MG; Start 11/08/18 at 06:00; Stop 11/11/18 at 05:59 Lactated Ringer's 1,000 ml @ 100 mls/hr Q10H IV Last administered on 11/08/18at 13:30; Admin Dose 100 MLS/HR; Start 11/08/18 at 13:30; Stop 11/08/18 at 18:30 VLADIMIR LAWS November 08, 2018 17:02
[2018-11-08] MEDS ORDERED: MAGNESIUM SULFATE 3 GM in DEXTROSE 5% 100 ML IVPB ONE (17:30)
[2018-11-08] MEDS: MAGNESIUM SULFATE 1 GM/D5W 100 ML IVPB SCH ×3 (18:12→21:44)
[2018-11-08 20:05] VITALS: BP 120/75; PULSE 85; RESP 16
[2018-11-09] MEDS: HYDROCODONE/APAP (5/325) TAB PO SCH ×4 (01:52→20:25)
[2018-11-09 04:45] VITALS: BP 121/84; PULSE 92; RESP 16
[2018-11-09 08:30] VITALS: BP 129/79; PULSE 77; RESP 20
[2018-11-09] MEDS ORDERED: BISACODYL 10 MG SUPP PR ONE (11:00)
--- NOTE | 2018-11-09 13:07 | PN ---
Date/Time of Note Date/Time of Note DATE: 11/09/18 TIME: 13:06 Assessment/Plan VTE Prophylaxis Risk score (from Nsg)>0 risk: 3 Pharmacological prophylaxis: NA/contraindicated Pharm contraindication: bleeding Lines/Catheters IV Catheter Type (from Nrsg): Saline Lock Assessment/Plan Hospital Course 1. Acute blood loss anemia secondary to hemorrhage and DIC DIC has now resolved, no further blood products per hematology Patient status post vaginal delivery complicated by significant h emorrhage, DIC, patient is status post partial hysterectomy and bilateral salpingectomy Patient is status post 7 units of packed red blood cells, FFP and cryoprecipitate Hematology consultation appreciated Patient is hemodynamically stable at this time Follow-up on OB recommendations Clear for DC per medicine, will now sign off Prophylaxis: SCDs Result Diagram: 11/09/18 0544 11/09/18 0545 Results 24hrs Laboratory Tests Test 11/09/18 05:44 11/09/18 05:45 White Blood Count 6.7 # Red Blood Count 2.27 L Hemoglobin 6.8 *L Hematocrit 19.5 L Mean Corpuscular Volume 85.9 Mean Corpuscular Hemoglobin 30.0 Mean Corpuscular Hemoglobin Concent 34.9 Red Cell Distribution Width 14.4 Platelet Count 85 L Mean Platelet Volume 11.0 H Immature Granulocytes % 0.300 Neutrophils % Segmented Neutrophils % (Manual) 83 H Lymphocytes % Lymphocytes % (Manual) 11 L Monocytes % Monocytes % (Manual) 5 Eosinophils % Eosinophils % (Manual) 1 Basophils % Nucleated Red Blood Cells % 0.0 Immature Granulocytes # 0.020 Neutrophils # Lymphocytes (Manual) 0.7 L Lymphocytes # Monocytes # Monocytes # (Manual) 0.3 Eosinophils # Basophils # Nucleated Red Blood Cells # Platelet Estimate DECREASED Giant Platelets 18 H Poikilocytosis 1+ Anisocytosis 1+ Prothrombin Time 13.2 Prothrombin Time Ratio 1.0 INR International Normalized Ratio 0.99 Activated Partial Thromboplast Time 29.5 Fibrinogen 312.0 D-Dimer > 93422.00 H Magnesium Level 2.0 Sodium Level 138 Potassium Level 3.5 Chloride Level 107 Carbon Dioxide Level 28 Anion Gap 3 L Blood Urea Nitrogen 5 L Creatinine 0.61 Est Glomerular Filtrat Rate mL/min > 60 Glucose Level 76 Calcium Level 7.8 L Total Bilirubin 0.4 Direct Bilirubin 0.00 Indirect Bilirubin 0.4 Aspartate Amino Transf (AST/SGOT) 22 Alanine Aminotransferase (ALT/SGPT) 20 Alkaline Phosphatase 70 Lactate Dehydrogenase 552 Total Protein 4.8 L Albumin 2.3 L Globulin 2.50 Albumin/Globulin Ratio 0.92 Subjective 24 Hr Interval Summary Constitutional: no complaints Exam/Review of Systems Exam Vitals Vital Signs Date Temp Pulse Resp B/P (MAP) Pulse Ox O2 O2 Flow FiO2 Time Delivery Rate 11/09/18 98.4 77 20 129/79 Room Air 08:30 (96) 11/08/18 95 08:15 Intake and Output 11/08/18 11/08/18 11/09/18 1515:00 23:00 07:00 OutputOutput Total 2700 ml 600 ml 400 ml BalanceBalance -2700 ml -600 ml -400 ml Constitutional: alert, oriented Respiratory: clear to auscultation Cardiovascular: regular rate and rhythm Gastrointestinal: soft; No distended Musculoskeletal: nl extremities to inspection Results Results 24hrs Laboratory Tests Test 11/09/18 05:44 11/09/18 05:45 White Blood Count 6.7 # Red Blood Count 2.27 L Hemoglobin 6.8 *L Hematocrit 19.5 L Mean Corpuscular Volume 85.9 Mean Corpuscular Hemoglobin 30.0 Mean Corpuscular Hemoglobin Concent 34.9 Red Cell Distribution Width 14.4 Platelet Count 85 L Mean Platelet Volume 11.0 H Immature Granulocytes % 0.300 Neutrophils % Segmented Neutrophils % (Manual) 83 H Lymphocytes % Lymphocytes % (Manual) 11 L Monocytes % Monocytes % (Manual) 5 Eosinophils % Eosinophils % (Manual) 1 Basophils % Nucleated Red Blood Cells % 0.0 Immature Granulocytes # 0.020 Neutrophils # Lymphocytes (Manual) 0.7 L Lymphocytes # Monocytes # Monocytes # (Manual) 0.3 Eosinophils # Basophils # Nucleated Red Blood Cells # Platelet Estimate DECREASED Giant Platelets 18 H Poikilocytosis 1+ Anisocytosis 1+ Prothrombin Time 13.2 Prothrombin Time Ratio 1.0 INR International Normalized Ratio 0.99 Activated Partial Thromboplast Time 29.5 Fibrinogen 312.0 D-Dimer > 77925.00 H Magnesium Level 2.0 Sodium Level 138 Potassium Level 3.5 Chloride Level 107 Carbon Dioxide Level 28 Anion Gap 3 L Blood Urea Nitrogen 5 L Creatinine 0.61 Est Glomerular Filtrat Rate mL/min > 60 Glucose Level 76 Calcium Level 7.8 L Total Bilirubin 0.4 Direct Bilirubin 0.00 Indirect Bilirubin 0.4 Aspartate Amino Transf (AST/SGOT) 22 Alanine Aminotransferase (ALT/SGPT) 20 Alkaline Phosphatase 70 Lactate Dehydrogenase 552 Total Protein 4.8 L Albumin 2.3 L Globulin 2.50 Albumin/Globulin Ratio 0.92 Medications Medication Current Medications Simethicone (Mylicon) 160 mg Q8H PRN PO .GAS Last administered on 11/09/18 01:51; Admin Dose 160 MG; Start 11/08/18 at 01:00 Lanolin (Lanolin Hpa) 1 applic BEDSIDE MEDICATION PRN TOP .NIPPLES; Start 11/08/18 at 01:00 Diphtheria/ Tetanus/Acell Pertussis (Adacel) 0.5 ml ONCE ONCE IM* ; Start 11/10 at 09:00; Stop 11/10/18 at 09:01 Measles/Mumps/ Rubella Vaccine Live (Mmr Ii Vaccine) 0.5 ml ONCE ONCE SC* ; Start 11/10/18 at 09:00; Stop 11/10/18 at 09:01 Acetaminophen/ Hydrocodone Bitart ([place] (5/325)) 1 tab Q4H PRN PO PAIN LEVEL 7-10 Last administered on 11/08/18 21:45; Admin Dose 1 TAB; Start 11/08/18 at 04:00 Acetaminophen/ Hydrocodone Bitart ([place] (5/325)) 1 tab Q8H PO Last admini stered on 11/09/18 09:07; Admin Dose 1 TAB; Start 11/08/18 at 01:00 Ketorolac Tromethamine (Toradol) 30 mg Q6H PRN IV PAIN LEVEL 4-7 Last administered on 11/08/18 22:41; Admin Dose 30 MG; Start 11/08/18 at 06:00; Stop 11/11/18 at 05:59 VLADIMIR LAWS November 09, 2018 13:07
[2018-11-09] MEDS: HYDROCODONE/APAP (5/325) TAB PO PRN (14:19)
[2018-11-09 16:00] VITALS: BP 111/69; PULSE 73; RESP 20
--- NOTE | 2018-11-09 17:02 | QN ---
Documentation Comment Postop day #3 Status pos 1. Partial hysterectomy 2. Bilateral salpingectomy for hemorrhage Status post 7 units of packed RBCs; 2 platelets and 3 cryoprecipitate Patient stable and afebrile Patient is ambulating, tolerating regular diet, voiding and positive flatus Vital signs stable VS - Last 72 Hours, by Label Date Temp Pulse Resp B/P (MAP) Pulse Ox O2 O2 Flow FiO2 Time Delivery Rate 11/09/18 98.3 73 20 111/69 Room Air 16:00 (83) 11/09/18 98.4 77 20 129/79 Room Air 08:30 (96) 11/09/18 98.0 92 16 121/84 Room Air 04:45 (96) 11/08/18 98.8 85 16 120/75 Room Air 20:05 (90) 11/08/18 99.0 83 18 133/83 15:45 (100) 11/08/18 98.9 93 20 115/71 95 08:15 (86) 11/08/18 98.0 90 20 149/86 100 04:40 (107) 11/07/18 99.4 101 18 134/87 100 Room Air 22:45 (103) 11/07/18 96 19 145/79 100 Room Air 22:00 (101) 11/07/18 93 18 159/69 Room Air 21:00 (99) 11/07/18 93 20:00 11/07/18 98.4 93 21 131/81 100 Room Air 20:00 (98) 11/07/18 92 14 136/83 100 Room Air 19:00 (100) 11/07/18 86 13 114/95 100 Room Air 18:00 (101) 11/07/18 14 17:19 11/07/18 74 11 133/82 100 Room Air 17:00 (99) 11/07/18 73 16:00 11/07/18 98.0 64 14 120/82 100 Room Air 16:00 (95) 11/07/18 65 13 125/81 100 Room Air 15:00 (96) 11/07/18 70 14 116/75 100 Room Air 14:00 (89) 11/07/18 75 14 126/74 100 Room Air 13:00 (91) 11/07/18 98.2 66 15 116/76 100 Room Air 12:00 (89) 11/07/18 67 12:00 11/07/18 16 11:00 11/07/18 71 16 143/82 100 Room Air 11:00 (102) 11/07/18 73 14 130/89 100 Room Air 10:00 (103) 11/07/18 70 16 133/69 100 Room Air 09:00 (90) 11/07/18 71 08:00 11/07/18 98.1 67 15 126/74 100 Room Air 08:00 (91) 11/07/18 74 17 131/76 100 Room Air 07:00 (94) 11/07/18 17 07:00 11/07/18 85 18 138/76 100 Room Air 06:00 (96) 11/07/18 95 19 132/84 100 Room Air 05:00 (100) 11/07/18 98.6 87 16 130/70 100 Room Air 04:00 (90) 11/07/18 88 04:00 11/07/18 97 16 138/83 100 Room Air 03:00 (101) 11/07/18 15 02:59 11/07/18 88 12 120/72 100 Room Air 02:00 (88) 11/07/18 89 12 108/58 100 Room Air 01:00 (75) 11/07/18 98.5 92 18 133/85 100 Room Air 00:00 (101) 11/07/18 94 00:00 11/06/18 87 16 111/71 100 Room Air 23:00 (84) 11/06/18 94 13 101/67 100 Room Air 22:00 (78) 11/06/18 99 14 103/77 100 Room Air 21:00 (86) 11/06/18 98.3 93 19 112/65 100 Room Air 20:00 (81) 11/06/18 104 20:00 11/06/18 98.2 100 19 117/65 100 Room Air 18:56 (82) 11/06/18 103 18:35 Hematology - 72 Hrs Test 11/06/18 17:25 11/06/18 23:31 11/07/18 05:00 11/07/18 14:49 Hematocrit 25.3 22.3 17.3 23.2 % (37.0-47.0) % (37.0-47.0) % (37.0-47.0) % (37.0-47.0) L L #L #L Hemoglobin 8.6 7.7 6.0 8.0 g/dl (12.0-16.0 g/dl (12.0-16. g/dl (12.0-16. g/dl (12.0-16. ) #L 0) L 0) 0) #L Mean 29.1 28.9 29.1 28.6 Corpuscular pg (29.0-33.0) pg (29.0-33.0) pg (29.0-33.0) pg (29.0-33.0) Hemoglobin L L Mean 34.0 34.5 34.7 34.5 Corpuscular g/dl (32.0-37.0 g/dl (32.0-37. g/dl (32.0-37. g/dl (32.0-37. Hemoglobin Conc ) 0) 0) 0) ent Mean 85.5 83.8 84.0 82.9 Corpuscular fl (82.0-101.0) fl (82.0-101.0 fl (82.0-101.0 fl (82.0-101.0 Volume ) ) ) Mean Platelet 10.2 10.5 10.6 11.0 Volume fl (7.4-10.4) fl (7.4-10.4) fl (7.4-10.4) fl (7.4-10.4) H H H Platelet Count 85 128 108 83 10^3/UL (140-41 10^3/UL (140-4 10^3/UL (140-4 10^3/UL (140-4 5) #L 15) #L 15) L 15) #L Red Blood 2.96 2.66 2.06 2.80 Count 10^6/ul (4.20-5 10^6/ul (4.20- 10^6/ul (4.20- 10^6/ul (4.20- .40) L 5.40) L 5.40) #L 5.40) #L Red Cell 14.6 14.6 14.4 14.2 Distribution % (11.5-14.5) % (11.5-14.5) % (11.5-14.5) % (11.5-14.5) Width H H White Blood 18.6 13.4 10.9 8.7 Count 10^3/ul (4.8-10 10^3/ul (4.8-1 10^3/ul (4.8-1 10^3/ul (4.8-1 .8) #H 0.8) #H 0.8) H 0.8) # Monocytes # 0.1 0.5 (Manual) 10^3/ul (0.3-0 10^3/ul (0.3-0 .9) L .9) Test 11/08/18 06:40 11/09/18 05:44 Hematocrit 21.6 19.5 % (37.0-47.0) % (37.0-47.0) L L Hemoglobin 7.4 6.8 g/dl (12.0-16.0 g/dl (12.0-16. ) L 0) *L Mean 28.9 30.0 Corpuscular pg (29.0-33.0) pg (29.0-33.0) Hemoglobin L Mean 34.3 34.9 Corpuscular g/dl (32.0-37.0 g/dl (32.0-37. Hemoglobin Conc ) 0) ent Mean 84.4 85.9 Corpuscular fl (82.0-101.0) fl (82.0-101.0 Volume ) Mean Platelet 11.2 11.0 Volume fl (7.4-10.4) fl (7.4-10.4) H H Platelet Count 79 85 10^3/UL (140-41 10^3/UL (140-4 5) L 15) L Red Blood 2.56 2.27 Count 10^6/ul (4.20-5 10^6/ul (4.20- .40) L 5.40) L Red Cell 14.6 14.4 Distribution % (11.5-14.5) % (11.5-14.5) Width H White Blood 8.7 6.7 Count 10^3/ul (4.8-10 10^3/ul (4.8-1 .8) 0.8) # Monocytes # 0.3 (Manual) 10^3/ul (0.3-0 .9) Chemistry Test 11/06/18 17:25 11/06/18 23:31 11/07/18 05:00 11/08/18 06:40 Sodium Level 136 136 137 139 mmol/L (135-144 mmol/L (135-14 mmol/L (135-14 mmol/L (135-14 ) 4) 4) 4) Potassium 4.1 4.2 3.8 3.6 Level mmol/L (3.5-5.1 mmol/L (3.5-5. mmol/L (3.5-5. mmol/L (3.5-5. ) 1) 1) 1) Chloride Level 113 110 109 108 mmol/L (97-110) mmol/L (97-110 mmol/L (97-110 mmol/L (97-110 H ) ) ) Carbon Dioxide 21 24 27 29 Level mmol/L (21-31) mmol/L (21-31) mmol/L (21-31) mmol/L (21-31) Anion Gap 2 (5-13) L 2 (5-13) L 1 (5-13) L 2 (5-13) L Blood Urea 9 mg/dl (7-20) 8 mg/dl 7 mg/dl 7 mg/dl Nitrogen (7-20) (7-20) (7-20) Creatinine 0.49 0.54 0.57 0.68 mg/dl (0.44-1.0 mg/dl (0.44-1. mg/dl (0.44-1. mg/dl (0.44-1. 0) 00) 00) 00) Est Glomerular > 60 > 60 > 60 > 60 Filtrat mL/min (>60) mL/min (>60) mL/min (>60) mL/min (>60) Rate mL/min Glucose Level 139 123 107 99 mg/dl (70-220) mg/dl (70-220) mg/dl (70-220) mg/dl (70-220) # Calcium Level 8.5 8.2 8.1 8.3 mg/dl (8.4-10.2 mg/dl (8.4-10. mg/dl (8.4-10. mg/dl (8.4-10. ) 2) L 2) L 2) L Total 1.5 1.0 0.9 Bilirubin mg/dl (0.2-1.3) mg/dl (0.2-1.3 mg/dl (0.2-1.3 H ) ) Direct 0.00 0.00 0.00 Bilirubin mg/dl (0.00-0.2 mg/dl (0.00-0. mg/dl (0.00-0. 0) 20) 20) Indirect 1.5 1.0 0.9 Bilirubin mg/dl (0-1.1) mg/dl (0-1.1) mg/dl (0-1.1) H Aspartate Amino 28 IU/L (15-46) 32 30 Transf (AST/SGO IU/L (15-46) IU/L (15-46) T) Alanine 23 IU/L (13-69) 28 27 Aminotransferas IU/L (13-69) IU/L (13-69) e (ALT/SGPT) Alkaline 58 63 58 Phosphatase IU/L (42-121) IU/L (42-121) IU/L (42-121) # Total Protein 3.5 4.3 4.3 g/dl (6.1-8.1) g/dl (6.1-8.1) g/dl (6.1-8.1) #L L L Albumin 1.6 2.1 2.1 g/dl (3.3-4.9) g/dl (3.3-4.9) g/dl (3.3-4.9) #L L L Globulin 1.90 2.20 2.20 g/dl (1.3-3.2) g/dl (1.3-3.2) g/dl (1.3-3.2) Albumin/Globuli 0.84 0.95 0.95 n Ratio Lactate 739 Dehydrogenase IU/L (313-618) H Phosphorus 3.8 Level mg/dl (2.5-4.9 ) Magnesium 1.5 Level mg/dl (1.7-2.5 ) L Test 11/09/18 05:44 11/09/18 05:45 Magnesium 2.0 Level mg/dl (1.7-2.5) Sodium Level 138 mmol/L (135-14 4) Potassium 3.5 Level mmol/L (3.5-5. 1) Chloride Level 107 mmol/L (97-110 ) Carbon Dioxide 28 Level mmol/L (21-31) Anion Gap 3 (5-13) L Blood Urea 5 mg/dl Nitrogen (7-20) L Creatinine 0.61 mg/dl (0.44-1. 00) Est Glomerular > 60 Filtrat mL/min (>60) Rate mL/min Glucose Level 76 mg/dl (70-220) Calcium Level 7.8 mg/dl (8.4-10. 2) L Total 0.4 Bilirubin mg/dl (0.2-1.3 ) Direct 0.00 Bilirubin mg/dl (0.00-0. 20) Indirect 0.4 Bilirubin mg/dl (0-1.1) Aspartate Amino 22 Transf (AST/SGO IU/L (15-46) T) Alanine 20 Aminotransferas IU/L (13-69) e (ALT/SGPT) Alkaline 70 Phosphatase IU/L (42-121) Lactate 552 Dehydrogenase IU/L (313-618) Total Protein 4.8 g/dl (6.1-8.1) L Albumin 2.3 g/dl (3.3-4.9) L Globulin 2.50 g/dl (1.3-3.2) Albumin/Globuli 0.92 n Ratio Abdomen soft, fundus firm Vertical skin incision clean, dry, intact Extremities nontender Assessment and plan Patient stable and doing well Patient encouraged to ambulate Repeat CBC in [email or web address] FABIAN OTOOLE MD November 09, 2018 17:02
--- NOTE | 2018-11-09 17:16 | PN ---
Date/Time of Note Date/Time of Note DATE: 11/09/18 TIME: 17:14 Assessment/Plan VTE Prophylaxis Risk score (from Nsg)>0 risk: 3 Pharmacological prophylaxis: NA/contraindicated Pharm contraindication: low risk/ambulating Lines/Catheters IV Catheter Type (from Nrsg): Saline Lock Assessment/Plan Assessment/Plan 1. DIC, resolved. 2. day 3. 3. Thrombocytopenia and anemia secondary to #1. PLAN: It is unclear at this time whether the patient's abnormalities are related to the DIC or to "wash out." I do feel, however, it is likely that there was a DIC as a fibrinogen was lower than one would expect from washout alone. Review of peripheral blood smear did not show any red blood cell fragmentation. Platelets are decreased, but there are large platelet forms seen. I do feel that the patient's consumptive coagulopathy has resolved. There is no end organ damage and that the patient's liver functions and renal function remain normal. At this time, I do not feel the patient requires any further blood products. She would benefit from iron supplementation upon discharge, of course. Result Diagram: 11/09/18 0544 11/09/18 0545 Results 24hrs Laboratory Tests Test 11/09/18 05:44 11/09/18 05:45 White Blood Count 6.7 # Red Blood Count 2.27 L Hemoglobin 6.8 *L Hematocrit 19.5 L Mean Corpuscular Volume 85.9 Mean Corpuscular Hemoglobin 30.0 Mean Corpuscular Hemoglobin Concent 34.9 Red Cell Distribution Width 14.4 Platelet Count 85 L Mean Platelet Volume 11.0 H Immature Granulocytes % 0.300 Neutrophils % Segmented Neutrophils % (Manual) 83 H Lymphocytes % Lymphocytes % (Manual) 11 L Monocytes % Monocytes % (Manual) 5 Eosinophils % Eosinophils % (Manual) 1 Basophils % Nucleated Red Blood Cells % 0.0 Immature Granulocytes # 0.020 Neutrophils # Lymphocytes (Manual) 0.7 L Lymphocytes # Monocytes # Monocytes # (Manual) 0.3 Eosinophils # Basophils # Nucleated Red Blood Cells # Platelet Estimate DECREASED Giant Platelets 18 H Poikilocytosis 1+ Anisocytosis 1+ Prothrombin Time 13.2 Prothrombin Time Ratio 1.0 INR International Normalized Ratio 0.99 Activated Partial Thromboplast Time 29.5 Fibrinogen 312.0 D-Dimer > 47712.00 H Magnesium Level 2.0 Sodium Level 138 Potassium Level 3.5 Chloride Level 107 Carbon Dioxide Level 28 Anion Gap 3 L Blood Urea Nitrogen 5 L Creatinine 0.61 Est Glomerular Filtrat Rate mL/min > 60 Glucose Level 76 Calcium Level 7.8 L Total Bilirubin 0.4 Direct Bilirubin 0.00 Indirect Bilirubin 0.4 Aspartate Amino Transf (AST/SGOT) 22 Alanine Aminotransferase (ALT/SGPT) 20 Alkaline Phosphatase 70 Lactate Dehydrogenase 552 Total Protein 4.8 L Albumin 2.3 L Globulin 2.50 Albumin/Globulin Ratio 0.92 Subjective 24 Hr Interval Summary Free Text/Dictation Patient awake alert, Denies any chest pain or shortness of breath No further bleeding noted by RN Exam/Review of Systems Exam Vitals Vital Signs Date Temp Pulse Resp B/P (MAP) Pulse Ox O2 O2 Flow FiO2 Time Delivery Rate 11/09/18 98.3 73 20 111/69 Room Air 16:00 (83) 11/08/18 95 08:15 Intake and Output 11/08/18 11/08/18 11/09/18 1515:00 23:00 07:00 OutputOutput Total 2700 ml 600 ml 400 ml BalanceBalance -2700 ml -600 ml -400 ml Constitutional: alert, oriented Head: normocephalic, atraumatic Eyes: nl conjunctiva, EOMI Neck: supple, non-tender Respiratory: clear to auscultation, normal air movement Cardiovascular: regular rate and rhythm, nl pulses Gastrointestinal: soft, non-tender Extremities: normal pulses Results Results 24hrs Laboratory Tests Test 11/09/18 05:44 11/09/18 05:45 White Blood Count 6.7 # Red Blood Count 2.27 L Hemoglobin 6.8 *L Hematocrit 19.5 L Mean Corpuscular Volume 85.9 Mean Corpuscular Hemoglobin 30.0 Mean Corpuscular Hemoglobin Concent 34.9 Red Cell Distribution Width 14.4 Platelet Count 85 L Mean Platelet Volume 11.0 H Immature Granulocytes % 0.300 Neutrophils % Segmented Neutrophils % (Manual) 83 H Lymphocytes % Lymphocytes % (Manual) 11 L Monocytes % Monocytes % (Manual) 5 Eosinophils % Eosinophils % (Manual) 1 Basophils % Nucleated Red Blood Cells % 0.0 Immature Granulocytes # 0.020 Neutrophils # Lymphocytes (Manual) 0.7 L Lymphocytes # Monocytes # Monocytes # (Manual) 0.3 Eosinophils # Basophils # Nucleated Red Blood Cells # Platelet Estimate DECREASED Giant Platelets 18 H Poikilocytosis 1+ Anisocytosis 1+ Prothrombin Time 13.2 Prothrombin Time Ratio 1.0 INR International Normalized Ratio 0.99 Activated Partial Thromboplast Time 29.5 Fibrinogen 312.0 D-Dimer > 44256.00 H Magnesium Level 2.0 Sodium Level 138 Potassium Level 3.5 Chloride Level 107 Carbon Dioxide Level 28 Anion Gap 3 L Blood Urea Nitrogen 5 L Creatinine 0.61 Est Glomerular Filtrat Rate mL/min > 60 Glucose Level 76 Calcium Level 7.8 L Total Bilirubin 0.4 Direct Bilirubin 0.00 Indirect Bilirubin 0.4 Aspartate Amino Transf (AST/SGOT) 22 Alanine Aminotransferase (ALT/SGPT) 20 Alkaline Phosphatase 70 Lactate Dehydrogenase 552 Total Protein 4.8 L Albumin 2.3 L Globulin 2.50 Albumin/Globulin Ratio 0.92 Medications Medication Current Medications Simethicone (Mylicon) 160 mg Q8H PRN PO .GAS Last administered on 11/09/18 01:51; Admin Dose 160 MG; Start 11/08/18 at 01:00 Lanolin (Lanolin Hpa) 1 applic BEDSIDE MEDICATION PRN TOP .NIPPLES; Start 11/08/18 at 01:00 Diphtheria/ Tetanus/Acell Pertussis (Adacel) 0.5 ml ONCE ONCE IM* ; Start 11/10/18 at 09:00; Stop 11/10/18 at 09:01 Measles/Mumps/ Rubella Vaccine Live (Mmr Ii Vaccine) 0.5 ml ONCE ONCE SC* ; Start 11/10/18 at 09:00; Stop 11/10/18 at 09:01 Acetaminophen/ Hydrocodone Bitart ([place] (5/325)) 1 tab Q4H PRN PO PAIN LEVEL 7-10 Last administered on 11/09/18 14:19; Admin Dose 1 TAB; Start 11/08/18 at 04:00 Acetaminophen/ Hydrocodone Bitart ([place] (5/325)) 1 tab Q8H PO Last administ ered on 11/09/18 09:07; Admin Dose 1 TAB; Start 11/08/18 at 01:00 Ketorolac Tromethamine (Toradol) 30 mg Q6H PRN IV PAIN LEVEL 4-7 Last administered on 11/08/18at 22:41; Admin Dose 30 MG; Start 11/08/18 at 06:00; Stop 11/11/18 at 05:59 SESAR LORENZO MD November 09, 2018 17:16
[2018-11-09 20:00] VITALS: BP 110/66; PULSE 87; RESP 18
[2018-11-10] MEDS: KETOROLAC 30 MG INJ IV PRN (00:42)
[2018-11-10 04:30] VITALS: BP 116/72; PULSE 90; RESP 18
[2018-11-10 08:30] VITALS: BP 118/78; PULSE 79; RESP 16
[2018-11-10] MEDS: HYDROCODONE/APAP (5/325) TAB PO SCH (08:50)
[2018-11-10] MEDS ORDERED: MEASLES,MUMPS,RUBELLA VACCINE INJ SC* ONE (09:00)
[2018-11-10] MEDS ORDERED: DIPHTH/TET/ACEL PERTUSS (ADULT) 0.5 ML VIAL IM* ONE (09:00)
[2018-11-10] MEDS ORDERED: CYANOCOBALAMIN 1000 MCG INJ IM ONE (12:00)
--- NOTE | 2018-11-10 14:06 | PN ---
Date/Time of Note Date/Time of Note DATE: 11/10/18 TIME: 13:52 OB Subjective Subjective Subjective POD#4 Patient is doing well. She denies nausea, vomiting, shortness of breath, chest pain, headache. She has been ambulating without difficulty, tolerating regular diet. Pain is well controlled on current medications OB Objective Objective Objective General: AAO X 3, comfortable, NAD, appropriate mood and affect. Heart: RRR +S1, +S2, no murmurs. Lungs: Clear to auscultation (B/L), no rales, rhonchi or wheezing. ABD: +BS. Soft, non-tender. Uterus 2 cm below umbilicus Incision: Clear, dry, intact. No erythema, drainage or induration. Flank: No CVA tenderness (B/L) LE: Mild edema. No clubbing, cyanosis, thigh or calf tenderness (B/L). Homans 'sign is negative OB Assessment/Plan Other plan: 38 years old -0-0-5 s/p normal vaginal delivery at 39 weeks and 2 days, partial hysterectomy, bilateral salpingectomy for hemorrhage and DIC. POD#4. She overall received 7 unit of packed RBC, 2 units of fresh frozen plasma, 2 units cryoprecipitate and 1 unit of platelets. She was seen by hospitalist and wildlife removal specialist too. DIC resolved. Currently her hemoglobin is 7.4. Platelet 148. Fibrinogen 312. - AF, VSS - Baby is doing well, at bed side. She is bonding well - Continue care - Discharge home today - Rx and instruction given - Follow up in one and 6 weeks - Again hemorrhage, need for hysterectomy, DIC, blood transfusion and transfusion of blood product, operative findings and pathology report discussed in detail with patient. She expressed understanding. All of her questions answered. She appreciates the care was given. 2) anemia due to acute blood loss: As noted above she has received 7 units of packed RBC. She received vitamin B12 1 g IM today. Prescription for ferrous sulfate 325 mg 3 times daily, folic acid 1 mg daily given. Recommend continue vitamin. Patient speaks Wallisian, her sister who is fluent in Japanese is translating. ASHLEE JAIMES November 10, 2018 14:02
--- NOTE | 2018-11-10 14:08 | DS ---
Date/Time of Note Date/Time of Note DATE: 11/10/18 TIME: 14:06 Obstetrical Discharge Record Final Diagnosis Final Diagnosis: Term delivered Other Final Diagnosis 38 years old had a normal vaginal delivery, approximately 1 hour after vaginal delivery, she had hemorrhage. Pitocin, Cytotec and Hemabate given. Backri balloon due to failed medical treatment inserted. However patient continued to have extremely heavy vaginal bleeding, hysterectomy with bilateral salpingectomy with risks, benefits as a lifesaving procedure discussed with patient and her sister. Both agreed. She had partial hysterectomy and bilateral salpingectomy without any complication. However due to significant vaginal bleeding she had DIC. She overall received 7 unit of packed RBC, 2 units of fresh frozen plasma, 2 units cryoprecipitate and 1 unit of platelets. DIC resolved. Currently her hemoglobin is 7.4. Platelet 148. Fibrinogen 312. She received vitamin B12 1 g IM today. Prescription for ferrous sulfate 325 mg 3 times daily for 2 months then daily for another 4 months, folic acid 1 mg daily given. Recommend continue vitamin. She discharged home in stable condition with follow-up in 1 week. Condition on Discharge Physical Assessment Last Vitals: Vital Signs Date Temp Pulse Resp B/P (MAP) Pulse Ox O2 O2 Flow FiO2 Time Delivery Rate 11/10/18 98.3 86 18 106/67 15:57 (80) 11/10/18 Room Air 08:30 11/08/18 95 08:15 Voiding: Yes Bowel Movement: Yes Breast: Soft, non-tender Calf Tenderness: No Patient Condition: Stable ASHLEE JAIMES November 10, 2018 14:08
[2018-11-10] MEDS: HYDROCODONE/APAP (5/325) TAB PO PRN (14:57)
[2018-11-10 15:57] VITALS: BP 106/67; PULSE 86; RESP 18
--- NOTE | 2018-11-11 18:40 | DELSUM ---
Delivery Summary A-C Datetime Report Generated by CPN: 11/11/2018 18:39 DELIVERY PERSONNEL Client Application Support Engineer: Duvo, Rubina MATERNAL INFORMATION Delivery Anesthesia: Epidural Medications in Delivery: PITOCIN 30 UNITS, CYTOTEC Delivery QBL (ml): 412 Placenta Cultured: No Maternal Complications: None LABOR SUMMARY EDC: 11/10/2018 00:00 No. Babies in Womb: 1 Attempted: No Labor Anesthesia: Epidural LABOR INFORMATION Reason for Induction: Other Reason for Induction- Other: Elective Onset of Labor: 11/06/2018 11:17 Complete Dilatation: 11/06/2018 12:41 Oxytocin: Induction Group B Beta Strep: Negative Antibiotics # of Doses: 0 Steroids Given: None Reason Steroids Not Administered: Not Applicable MEMBRANES Membranes Rupture Method: Artificial Rupture of Membranes: 11/06/2018 11:17 Length of Rupture (hr): 1.50 Amniotic Fluid Color: Clear Amniotic Fluid Amount: Moderate Amniotic Fluid Odor: None STAGES OF LABOR Stage 1 hr: 1 Stage 1 min: 24 Stage 2 hr: 0 Stage 2 min: 6 Stage 3 hr: 0 Stage 3 min: 2 Total Time in Labor hr: 1 Total Time in Labor min: 32 VAGINAL DELIVERY Episiotomy: None Laceration Extension: First Degree Laceration Type: Perineal Initial Vag Sponge Count: 10 Final Vag Sponge Count: 10 Initial Vag Sharps Count: 1 Final Vag Sharps Count: 2 Sponge Count Correct: Yes; Vaginal Sweep Performed Sharps Count Correct: Yes BABY A INFORMATION Delivery Date/Time: 11/06/2018 12:47 Method of Delivery: Vaginal Born in Route : No : N/A Forceps: N/A Vacuum Extraction: N/A Shoulder Dystocia : No SHOULDER DYSTOCIA BABY A Delivery Date/Time: 11/06/2018 12:47 PRESENTATION/POSITION BABY A Presentation: Cephalic Cephalic Presentation: Vertex Vertex Position: Left Occipital Anterior Breech Presentation: N/A PLACENTA INFORMATION BABY A Placenta Delivery Time : 11/06/2018 12:49 Placenta Method of Delivery: Spontaneous Placenta Status: Delivered SCORES BABY A Heart Rate 1 min: >100 bpm Resp Effort 1 min: Good Cry Reflex Irritability 1 min: Cough/Sneeze/Pulls Away Muscle Tone 1 min: Active Motion Color 1 min: Blue/Pale Resuscitation Effort 1 min: Tactile Stimulation SCORE 1 MIN: 8 Heart Rate 5 min: >100 bpm Resp Effort 5 min: Good Cry Reflex Irritability 5 min: Cough/Sneeze/Pulls Away Muscle Tone 5 min: Active Motion Color 5 min: Body [place], Extremit Blue Resuscitation Effort 5 min: Tactile Stimulation SCORE 5 MIN: 9 INFORMATION BABY A Gestational Age at Delivery: 39.3 Gestational Status: Full Term- 39- 40.6 Weeks Infant Outcome : Liveborn Condition : Stable Sex: Female IDENTIFICATION/MEDS BABY A ID Band Number: [id number] ID Band Location: Right Leg; Left Arm Sensor Applied: Yes Sensor Number: [id number] Sensor Location : Cord Clamp Vitamin K Given : Not Given Erythromycin Given: Not Given WEIGHT/LENGTH BABY A Infant Birthweight (gm): 3680 Infant Weight (lb): 8 Weight (oz): 2 Infant Length (in): 19.50 Infant Length (cm): 49.53 CORD INFORMATION BABY A No. Cord Vessels: 3 Nuchal Cord : N/A Cord Blood Taken: Yes Suction: Mouth; Nose ASSESSMENT BABY A Complications: Extended Bradycardi; Multiple Variable Decels Physical Findings at Delivery: Within Normal Limits Infant Respirations: Appears Normal Field Installer/ALS Called : Yes Care By: Glory DIAZ Transferred To: Remains with Mother
== END 2018-11-10 16:40 | disposition home or self-care (01) | DRG 768 ==
LOC: L-D 22:49 → ICU 11-06 18:28 → PP1 11-07 22:24
PROVIDERS: ADMIT Obstetrics & Gynecology; ATTEND Obstetrics & Gynecology
PROC: 10E0XZZ Delivery of Products of Conception, External Approach (ICD-10-PCS; principal; 2018-11-06)
PROC: 0W3R7ZZ Control Bleeding in Genitourinary Tract, Via Natural or Artificial Opening (ICD-10-PCS; 2018-11-06)
PROC: 10907ZC Drainage of Amniotic Fluid, Therapeutic from Products of Conception, Via Natural or Artificial Opening (ICD-10-PCS; 2018-11-06)
PROC: 0UJD7ZZ Inspection of Uterus and Cervix, Via Natural or Artificial Opening (ICD-10-PCS; 2018-11-06)
PROC: 0UJH7ZZ Inspection of Vagina and Cul-de-sac, Via Natural or Artificial Opening (ICD-10-PCS; 2018-11-06)
PROC: 0HQ9XZZ Repair Perineum Skin, External Approach (ICD-10-PCS; 2018-11-06)
PROC: 30233K1 Transfusion of Nonautologous Frozen Plasma into Peripheral Vein, Percutaneous Approach (ICD-10-PCS; 2018-11-06)
PROC: 30233N1 Transfusion of Nonautologous Red Blood Cells into Peripheral Vein, Percutaneous Approach (ICD-10-PCS; 2018-11-06)
PROC: 30233R1 Transfusion of Nonautologous Platelets into Peripheral Vein, Percutaneous Approach (ICD-10-PCS; 2018-11-06)
PROC: 30233M1 Transfusion of Nonautologous Plasma Cryoprecipitate into Peripheral Vein, Percutaneous Approach (ICD-10-PCS; 2018-11-06)
PROC: 0UT70ZZ Resection of Bilateral Fallopian Tubes, Open Approach (ICD-10-PCS; 2018-11-07)
PROC: 0UT90ZL Resection of Uterus, Supracervical, Open Approach (ICD-10-PCS; 2018-11-07)
DX: O36.63X0 Maternal care for excessive fetal growth, third trimester, not applicable or unspecified (principal); Z37.0 Single live birth; D65 Disseminated intravascular coagulation [defibrination syndrome]; D62 Acute posthemorrhagic anemia; O72.1 Other immediate postpartum hemorrhage; O70.0 First degree perineal laceration during delivery; O72.3 Postpartum coagulation defects; O90.81 Anemia of the puerperium; Z3A.39 39 weeks gestation of pregnancy; Z23 Encounter for immunization
CPT/HCPCS: 36430; 76815; 80048; 80053; 81003; 83010; 83615; 83735; 84100; 84560; 85025; 85049; 85378; 85384; 85610; 85670; 85730; 86592; 86644; 86850; 86900; 86901; 86920; 87340; 88302; 88305; 90715; J0690; J1100; J1170; J1200; J1885; J2210; J2250; J2270; J2370; J2405; J2543; J2590; J2765; J2795; J3010; J3420; J3475; J7120; P9016; P9035; P9059

== ENCOUNTER 2018-11-19 14:38 | Emergency (ER) | payer MEDICAID ==
[~2018-11-19] VITALS: Ht 170.2 cm; Wt 81.8 kg
[~2018-11-19 14:38] MED LIST changes: -CARBOPROST 250 MCG INJ ONE
[2018-11-19 14:54] VITALS: Ht 170.2 cm; Wt 81.8 kg
[2018-11-19] MEDS ORDERED: IOHEXOL 300MG/ML 150 ML BTL ONE (20:20)
[2018-11-19] MEDS ORDERED: SOD CHLORIDE 0.9% 100 ML ONE (20:20)
[2018-11-19 23:20] VITALS: BP 168/98; PULSE 61; RESP 20
--- NOTE | 2018-11-27 17:57 | ERD ---
ER Documentation Chief Complaint Chief Complaint hematuria, rectal pain w/BM, post vag delivery, hysterectomy w/DIC HPI History of Present Illness: 38-year-old female who denies a past medical history coming in today with complaint of hematuria, rectal pain with bowel movement. Patient reports hematuria started yesterday. Patient reports she has noticed pain with bowel movement starting approximately 5 days ago. Patient is G5, P5 reports having a vaginal delivery on November 06, 2018 in which she had complications and DIC occurred; patient had several units of RBCs, fresh frozen plasma, platelets, cryo Patient also had a hysterectomy immediately after vaginal delivery due to PPH. Patient reports that she was started on ferrous sulfate for anemia after vaginal delivery on approximately November 06 and she has had mild constipation since then. Patient reports that she flew from [place] to the [facility] approximately 09/2018. Patient is [place] speaking in her family member accompanies her. Denies blood in stool. Denies abdominal pain, nausea, vomiting. Patient was [facility] [place] by Dr. Anthony for further evaluation and work-up for patient's complaint of hematuria. Dr. Anthony desires CT cystogram if hematuria is present to rule out bladder injury. At home pharmacological/nonpharmacological treatment for symptoms: Ferrous sulfate for anemia that occurred after vaginal delivery Denies social concerns; Denies recent foreign travel ROS All systems reviewed and are negative except as per history of present illness. Medications Home Meds Reported Medications Multivit/Min/Fol Ac/Iron/Pren* ( S*) 1 Tab Tab, 1 TAB PO DAILY, TAB /08/03 Allergies Allergies: Coded Allergies: No Known Allergy (Unverified , 11/05/18) PMhx/Soc Medical and Surgical Hx: pt denies Medical Hx, pt denies Surgical Hx History of Surgery: No Anesthesia Reaction: No Hx Neurological Disorder: No Hx Respiratory Disorders: No Hx Cardiac Disorders: No Hx Psychiatric Problems: No Hx Miscellaneous Medical Probl: No Hx Alcohol Use: No Hx Substance Use: No Hx Tobacco Use: No Smoking Status: Never smoker FmHx Family History: No diabetes, No coronary disease Physical Exam Physical Exam Const: No acute distress Head: Atraumatic Eyes: Normal Conjunctiva ENT: Normal External Ears, Nose and Mouth. Neck: Full range of motion. No meningismus. Resp: Clear to auscultation bilaterally Cardio: Regular rate and rhythm, no murmurs Abd: Soft, non tender, non distended. Normal bowel sounds Skin: No petechiae or rashes Back: No midline or flank tenderness Ext: No cyanosis, or edema Neur: Awake and alert Psych: Normal Mood and Affect Results 24 hrs Laboratory Tests Test 11/19/18 16:53 11/19/18 21:54 White Blood Count 7.2 10^3/ul Red Blood Count 2.81 10^6/ul Hemoglobin 8.0 g/dl Hematocrit 25.6 % Mean Corpuscular Volume 91.1 fl Mean Corpuscular Hemoglobin 28.5 pg Mean Corpuscular Hemoglobin Concent 31.3 g/dl Red Cell Distribution Width 17.5 % Platelet Count 322 10^3/UL Mean Platelet Volume 9.9 fl Immature Granulocytes % 1.100 % Neutrophils % 70.8 % Lymphocytes % 17.0 % Monocytes % 9.4 % Eosinophils % 1.1 % Basophils % 0.6 % Nucleated Red Blood Cells % 0.6 /100WBC Immature Granulocytes # 0.080 10^3/ul Neutrophils # 5.1 10^3/ul Lymphocytes # 1.2 10^3/ul Monocytes # 0.7 10^3/ul Eosinophils # 0.1 10^3/ul Basophils # 0.0 10^3/ul Nucleated Red Blood Cells # 0.0 10^3/ul Urine Color JYOTI JYOTI Urine Clarity CLOUDY CLEAR Urine pH 7.0 9.0 Urine Specific Kenney 1.011 1.008 Urine Ketones NEGATIVE mg/dL NEGATIVE mg/dL Urine Nitrite NEGATIVE mg/dL NEGATIVE mg/dL Urine Bilirubin NEGATIVE mg/dL NEGATIVE mg/dL Urine Urobilinogen 1+ mg/dL NEGATIVE mg/dL Urine Leukocyte Esterase NEGATIVE Wesley/ul NEGATIVE Wesley/ul Urine Microscopic RBC 1 /HPF 2 /HPF Urine Microscopic WBC 7 /HPF 3 /HPF Urine Squamous Epithelial Cells FEW /HPF Urine Bacteria FEW /HPF FEW /HPF Urine Hemoglobin 3+ mg/dL 3+ mg/dL Urine Glucose NEGATIVE mg/dL NEGATIVE mg/dL Urine Total Protein 2+ mg/dl 2+ mg/dl Sodium Level 141 mmol/L Potassium Level 4.2 mmol/L Chloride Level 107 mmol/L Carbon Dioxide Level 27 mmol/L Anion Gap 7 Blood Urea Nitrogen 16 mg/dl Creatinine 0.89 mg/dl Est Glomerular Filtrat Rate mL/min > 60 mL/min Glucose Level 91 mg/dl Calcium Level 9.0 mg/dl Iron Level 104 ug/dl Total Iron Binding Capacity 361 ug/dl Percent Iron Saturation 29 % SAT Ferritin 126.0 ng/ml Total Bilirubin 1.8 mg/dl Direct Bilirubin 0.00 mg/dl Indirect Bilirubin 1.8 mg/dl Aspartate Amino Transf (AST/SGOT) 64 IU/L Alanine Aminotransferase (ALT/SGPT) 23 IU/L Alkaline Phosphatase 70 IU/L Creatine Kinase 182 IU/L Creatinine Kinase MB (Mass) 0.55 ng/ml Total Protein 7.4 g/dl Albumin 3.9 g/dl Globulin 3.50 g/dl Albumin/Globulin Ratio 1.11 Urine Mucus FEW /HPF Current Medications Medications Dose Sig/Josephine Start Time Status Last (Trade) Ordered Route PRN Stop Time Admin Dose Reason Admin IV Flush 10 ml STK-MED 11/19/18 DC (NS 10 ml) ONCE .ROUTE 20:20 11/19/18 20:21 Sodium 100 ml @ ud STK-MED 11/19/18 DC Chloride ONCE .ROUTE 20:20 11/19/18 20:21 Iohexol 150 ml STK-MED 11/19/18 DC (Omnipaque ONCE .ROUTE 20:20 11/19/18 300mg/ ml) 20:21 Procedures/MDM ED course includes a thorough examination and history. Medications: Imaging: Labs: CBC, C MP, CK, CK-MB, urinalysis, iron profile, ferritin, urine hCG Physician consultation at 1939: Dr. Anthony consulted. Call her on her cell phone to inform her results of labs at 1939. Reports that urine was caught as a clean-catch but she desires for patient to have a straight cath to ensure that blood that is in urine is not from vaginal. Orders placed for re-collect of urinalysis with straight cath. Orders placed for CT cystogram per Dr. Anthony request to rule out bladder injury. Patient consultation at [address] Anthony: Updated Dr. Anthony on CT results. Repeat urinalysis pending, nurses did not collect until post CT cystogram. Dr. Anthony reports that patient can follow-up with her outpatient, but recommends that patient sees home health nurse to rule out any pathological findings for hemoglobin and protein in urine. Low suspicion for life-threatening medical emergency. Low suspicion for acute gastrointestinal or genitourinary emergency that requires immediate hosp italization or immediate surgical intervention. Otherwise healthy patient presenting with constellation of symptoms likely repr esenting abnormal urine findings (hemoglobinuria, proteinuria); constipation secondary to ferrous sulfate intake as characterized by history, physical exam findings, lab findings, imaging findings. CBC: no e/o of systemic infection, anemia present with H&H at 8/25.6 ; patient asymptomatic and hemodynamically stable. CMP: no e/o severe acidosis, alkalosis, renal failure, diabetic ketoacidosis, liver disease. CK and CK-MB within normal limits. Iron profile and ferritin within normal limits. Bilirubin elevated at 1.8. Urinalysis without red blood cells, but with positive hemoglobin and protein. No signs of infection in urinalysis. CT results showing: MPRESSION: Status post delivery, midline pelvic laparotomy, and hysterectomy. Normal CT cystogram without evidence of urinary bladder injury. RPTAT: HTAR .Reji Howell MD, MD Date Time Electronically viewed and signed by .Reji Howell MD, MD on 11/19/2018 21:21 Patient reassessmen @[id number]: Patient hemodynamically stable. No respiratory distress, otherwise relatively well appearing and nontoxic. Disposition given. Patient and family member educated on diagnoses, prescriptions, follow-up care, return precautions. Strict return precautions given for worsening condition; questions answered discharge. Verbalization of understanding of plan of care as well as return precautions. Disposition for discharge with followup in 2 days with PCP/clinicas well as Dr. Anthony. Departure Diagnosis: Primary Impression: Abnormal urine findings Additional Impressions: Proteinuria Proteinuria type: unspecified Qualified Codes: R80.9 - Proteinuria, unspecified Hemoglobinuria Dark urine Constipation Constipation type: drug induced constipation Qualified Codes: K59.03 - Drug induced constipation Condition: Stable Patient Instructions: Hematuria, Proteinuria Referrals: COMMUNITY CLINICS YOU HAVE RECEIVED A MEDICAL SCREENING EXAM AND THE RESULTS INDICATE THAT YOU DO NOT HAVE A CONDITION THAT REQUIRES URGENT TREATMENT IN THE EMERGENCY DEPARTMENT. FURTHER EVALUATION AND TREATMENT OF YOUR CONDITION CAN WAIT UNTIL YOU ARE SEEN IN YOUR DOCTORS OFFICE WITHIN THE NEXT 1-2 DAYS. IT IS YOUR RESPONSIBILITY TO MAKE AN APPOINTMENT FOR FOLOW-UP CARE. IF YOU HAVE A PRIMARY DOCTOR --you should call your primary doctor and schedule an appointment IF YOU DO NOT HAVE A PRIMARY DOCTOR YOU CAN CALL OUR PHYSICIAN REFERRAL HOTLINE AT IF YOU CAN NOT AFFORD TO SEE A PHYSICIAN YOU CAN CHOSE FROM THE FOLLOWING [facility] [address] [facility] [address] [facility] [address] [facility] [address] [facility] [address] [facility]. [facility] [address] [facility]. [facility] YOU HAVE RECEIVED A MEDICAL SCREENING EXAM AND THE RESULTS INDICATE THAT YOU DO NOT HAVE A CONDITION THAT REQUIRES URGENT TREATMENT IN THE EMERGENCY DEPARTMENT. FURTHER EVALUATION AND TREATMENT OF YOUR CONDITION CAN WAIT UNTIL YOU ARE SEEN IN YOUR DOCTORS OFFICE WITHIN THE NEXT 1-2 DAYS. IT IS YOUR RESPONSIBILITY TO MAKE AN APPOINTMENT FOR FOLOW-UP CARE. IF YOU HAVE A PRIMARY DOCTOR --you should call your primary doctor and schedule and appointment IF YOU DO NOT HAVE A PRIMARY DOCTOR YOU CAN CALL OUR PHYSICIAN REFERRAL HOTLINE AT . IF YOU CAN NOT AFFORD TO SEE A PHYSICIAN YOU CAN CHOSE FROM THE FOLLOWING [facility] INSTITUTIONS: [facility] [address] [place] [address] [facility] [address] [place] [address] [facility] [address] [place] [address] Additional Instructions: Thank you very much for allowing us to participate in your care. Your health and safety is our top priority at [facility]. It is important to read all discharge instructions and education provided in your discharge packet. *It is very important for you to follow-up with a primary care doctor and possible bridge tender (kidney doctor) for reevaluation of the urine symptoms that you have presented with today. We have provided information to some local doctors that you can see them before you depart to your home country* *Follow-up with OB/GY within the next 2-3 days* Call your primary care doctor TOMORROW for an appointment during the next 2-4 days and bring all the information. If the symptoms get worse and your provider is unavailable, return to the Emergency Department immediately. BILLIE YUNG NP Nov 27, 2018 17:43
== END 2018-11-19 23:24 | disposition home or self-care (01) ==
LOC: FTE 14:38
DX: K59.00 Constipation, unspecified (principal); R82.3 Hemoglobinuria; R80.9 Proteinuria, unspecified
CPT/HCPCS: 72192; 80053; 81001; 82550; 82553; 82728; 83540; 85025; P9612; Q9967; Z7502; Z7610